=== PATIENT | female | born 1950 | race Caucasian/White ===

== ENCOUNTER 2017-03-05 00:11 | Inpatient (IN) | payer OTHER, MEDICAID ==
[~2017-03-05] VITALS: Ht 154.9 cm; Wt 68.0 kg
[2017-03-05 00:44] LABS: BASOPHILS # (AUTO) 0.1 K/uL (0.0-8.0); BASOPHILS % (AUTO) 0.7 % (0.0-2.0); EOSINOPHILS # (AUTO) 0.1 K/uL (0.0-0.7); EOSINOPHILS % (AUTO) 1.4 % (0.0-7.0); HEMATOCRIT 35.5 % (37-47); LYMPHOCYTES # (AUTO) 1.8 K/uL (20.0-40.0); LYMPHOCYTES % (AUTO) 24.5 % (20.5-51.5); MEAN CORPUSCULAR HEMOGLOBIN 30.5 UUG (27.0-31.0); MEAN CORPUSCULAR HGB CONC 34 g/dL (32.0-37.0); MEAN CORPUSCULAR VOLUME 90.3 FL (81.0-99.0); MONOCYTES # (AUTO) 0.6 K/uL (2.0-10.0); MONOCYTES % (AUTO) 8.2 % (0.0-11.0); NEUTROPHILS # (AUTO) 4.7 K/uL (1.8-8.9); NEUTROPHILS % (AUTO) 65.2 % (38.5-71.5); PLATELET COUNT (AUTO) 220 K/UL (150-450); RED BLOOD CELL COUNT(AUTO) 3.93 MIL/UL (4.2-5.4); RED CELL DISTRIBUTION WIDTH 14.5 % (11.5-14.5); WHITE BLOOD COUNT (AUTO) 7.3 K/UL (4.0-11.2)
--- NOTE | 2017-03-05 00:44 | NUR ---
labs drawn/urine sent, ekg done, pt to ct scan.
[2017-03-05 00:54] LABS: ETHANOL < 3 MG/DL (0-0)
[2017-03-05 00:54] LABS: *AMPHETAMINE, URINE NEGATIVE (NEGATIVE); *BARBITURATE, URINE NEGATIVE (NEGATIVE); *CANNABINOID, URINE NEGATIVE (NEGATIVE); *COCCAINE, URINE NEGATIVE (NEGATIVE); *OPIATE, URINE NEGATIVE (NEGATIVE); *PHENCYCLIDINE SCREEN,URINE NEGATIVE (NEGATIVE)
[2017-03-05 00:56] LABS: ALANINE AMINOTRANSFERASE 34 U/L (14-59); ALBUMIN 4.4 g/dL (3.4-5.0); ALKALINE PHOSPHATASE 141 U/L (50-136); ASPARTATE AMINOTRANSFERASE 63 U/L (15-37); BILIRUBIN,DIRECT 0.1 mg/dL (0.0-0.2); BILIRUBIN,TOTAL 0.6 mg/dL (0.2-1.0); CALCIUM 9.4 mg/dL (8.5-10.1); CARBON DIOXIDE 29 mmol/L (21-32); CHLORIDE 104 mmol/L (98-107); GFR 28 mL/min (>60); GLUCOSE 96 mg/dL (74-106); POTASSIUM 4.2 mmol/L (3.5-5.1); SODIUM SERUM 142 mmol/L (136-145); TOTAL PROTEIN, SERUM 8.3 g/dL (6.4-8.2); UREA NITROGEN, BLOOD 19 mg/dL (7-18)
[2017-03-05 00:57] LABS: ACETAMINOPHEN < 2.0 ug/mL (10-30); CREATININE 1.8 mg/dL (0.6-1.3)
[2017-03-05 01:03] LABS: THYROID STIMULATING HORMONE 0.686 mIU/mL (0.358-3.740)
--- NOTE | 2017-03-05 01:19 | NUR ---
felecia hubbard the pet student counselor at the bedside.
--- NOTE | 2017-03-05 02:05 | NUR ---
admit order written, belongings list done. sbar report to mhu. pt via w/c to rm 141a
[2017-03-05] MEDS ORDERED: TEMAZEPAM 7.5 MG CAPSULE PO PRN (03:30)
[2017-03-05] MEDS ORDERED: ACETAMINOPHEN 325 MG TABLET PO PRN (03:30)
[2017-03-05] MEDS ORDERED: MAG HYDROX/AL HYDROX/SIMETH 30 ML LIQUID UDC PO PRN (03:30)
[2017-03-05 04:30] VITALS: BP 136/104
--- NOTE | 2017-03-05 05:17 | NUR ---
Admitting Note: Patient is a 66 yr old female admitted to Mental Health Unit on a 5150 for Danger to self and Grave Disability. According to the hold neighbors called 911 because they were concerned the patient was walking the hallways of the apartment building where she currently resides talking to herself. It was reported that the patient had no light bulbs in her apartment and no food. Patient unable to provide medical history other than hypertension patient presented to the unit with a blood pressure of 136/104, to follow up with physician. Patient admitted under the care of Dr. Huggins and Dr. Torres. On admission patient appeared disheveled and unkempt. Skin appeard to be intact with the exception of a scab located on right leg chin area. Patient alert however disoriented to time, place and situation, patient's responsed to the question, What year is it? The answer given was "2014" . Patient appeared anxious and unable to form a coherent thought. Patient's speech was garbled and the content of her speech tangental and nonsensical. All belongings logged, Patient oriented to the room. Addendum: 03/05/17 at 0532 by KEVIN JOHNSON RN (scab located on and left leg)
[2017-03-05] MEDS: LORAZEPAM 0.5 MG TABLET PO PRN ×2 (07:27→16:09)
[2017-03-05 07:30] VITALS: BP 149/101
[2017-03-05] MEDS: GABAPENTIN 100 MG CAPSULE PO SCH ×2 (12:15→16:09)
[2017-03-05] MEDS: SERTRALINE HCL 50 MG TABLET PO SCH (12:16)
[2017-03-05 15:40] VITALS: BP 156/90
[2017-03-05 20:00] VITALS: BP 145/84
[2017-03-05] MEDS ORDERED: QUETIAPINE FUMARATE 25 MG TABLET PO SCH (21:00)
[2017-03-06] MEDS: LORAZEPAM 0.5 MG TABLET PO PRN ×2 (00:07→08:25)
[2017-03-06 07:30] VITALS: BP 129/52
[2017-03-06 08:13] LABS: BASOPHILS % (AUTO) 0.9 % (0.0-2.0); EOSINOPHILS # (AUTO) 0.2 K/uL (0.0-0.7); EOSINOPHILS % (AUTO) 3.8 % (0.0-7.0); HEMATOCRIT 36.8 % (37-47); HEMOGLOBIN 12.4 G/DL (12.0-16.0); LYMPHOCYTES # (AUTO) 1.1 K/uL (20.0-40.0); LYMPHOCYTES % (AUTO) 26.8 % (20.5-51.5); MEAN CORPUSCULAR HEMOGLOBIN 30.3 UUG (27.0-31.0); MEAN CORPUSCULAR HGB CONC 34 g/dL (32.0-37.0); MEAN CORPUSCULAR VOLUME 89.8 FL (81.0-99.0); MONOCYTES # (AUTO) 0.3 K/uL (2.0-10.0); MONOCYTES % (AUTO) 7.5 % (0.0-11.0); NEUTROPHILS # (AUTO) 2.5 K/uL (1.8-8.9); PLATELET COUNT (AUTO) 198 K/UL (150-450); RED CELL DISTRIBUTION WIDTH 14.9 % (11.5-14.5)
[2017-03-06 08:25] LABS: WHITE BLOOD COUNT (AUTO) 4.1 K/UL (4.0-11.2)
[2017-03-06] MEDS: GABAPENTIN 100 MG CAPSULE PO SCH ×2 (08:25→16:32)
[2017-03-06 08:39] LABS: CREATININE 1.3 mg/dL (0.6-1.3); POTASSIUM 4.8 mmol/L (3.5-5.1)
[2017-03-06 08:40] LABS: ALBUMIN 3.9 g/dL (3.4-5.0); BILIRUBIN,TOTAL 0.5 mg/dL (0.2-1.0); MAGNESIUM 2.4 mg/dL (1.8-2.4); PHOSPHOROUS 5.2 mg/dL (2.5-4.9); TOTAL PROTEIN, SERUM 7.9 g/dL (6.4-8.2)
[2017-03-06] MEDS: SERTRALINE HCL 50 MG TABLET PO SCH (13:16)
--- NOTE | 2017-03-06 13:34 | NUR ---
UR Note: Faxed clinicals to [facility], KATIANA Thakkar [ ext [phone] ]. Awaiting authorization.
[2017-03-06 15:29] VITALS: BP 126/78
[2017-03-06 20:00] VITALS: BP 134/78
[2017-03-06] MEDS: QUETIAPINE FUMARATE 25 MG TABLET PO SCH (20:04)
--- NOTE | 2017-03-06 22:00 | NUR ---
received to care, lying in bed, pleasant upon approach. remains isolative, in her room. was initially anxious, and hyperverbal. was observed in bed with her room mate, hugging her. firm limits set on this behavior, and it was not repeated. compliant with medications, and staff direction. as of 2199, she appears to be asleep. no distress noted. will continue to monitor closely.
--- NOTE | 2017-03-07 06:00 | NUR ---
slept 8.0 hours, total. is now awake. assisted with AM care, and shower. no distress noted. will continue to monitor closely.
[2017-03-07 07:30] VITALS: BP 134/86
[2017-03-07] MEDS: QUETIAPINE FUMARATE 25 MG TABLET PO SCH ×2 (08:58→20:15)
[2017-03-07] MEDS: GABAPENTIN 100 MG CAPSULE PO SCH ×2 (08:58→17:57)
[2017-03-07 11:09] LABS: VIT D, 25-HYDROXY 20.1 ng/mL (30.0-100.0)
[2017-03-07] MEDS: SERTRALINE HCL 50 MG TABLET PO SCH (12:32)
[2017-03-07 14:11] LABS: PTH, INTACT 81 pg/mL (15-65)
[2017-03-07 15:10] VITALS: BP 141/97
--- NOTE | 2017-03-07 16:22 | NUR ---
UR Note: Faxed clinicals today to [facility], KATIANA Thakkar [ ext [phone] ]. Awaiting authorization #.
[2017-03-07 20:32] VITALS: BP 154/118
--- NOTE | 2017-03-07 22:00 | NUR ---
received to care, in the activity room, visiting with her visitor. pleasant upon approach. compliant with medications and staff direction. interacts well with select peers. as of 2200, she appears to be asleep. no distress noted. will continue to monitor closely.
--- NOTE | 2017-03-08 06:00 | NUR ---
slept 9.5 hours, total. remains asleep, but easy to awaken. no distress noted. will continue to monitor closely.
[2017-03-08 07:30] VITALS: BP 155/103
[2017-03-08 08:11] LABS: A/G RATIO 1.1 (0.7-1.7); ALBUMIN 3.9 g/dL (2.9-4.4); ALPHA-1-GLOBULIN 0.3 g/dL (0.0-0.4); ALPHA-2-GLOBULIN 0.8 g/dL (0.4-1.0); BETA GLOBULIN 0.8 g/dL (0.7-1.3); GAMMA GLOBULIN 1.6 g/dL (0.4-1.8); GLOBULIN, TOTAL 3.5 g/dL (2.2-3.9); M-SPIKE Not Observed g/dL (Not Observed)
[2017-03-08] MEDS: QUETIAPINE FUMARATE 25 MG TABLET PO SCH (08:45)
[2017-03-08] MEDS: AMLODIPINE 5 MG TABLET PO SCH (08:45)
[2017-03-08] MEDS: GABAPENTIN 100 MG CAPSULE PO SCH ×2 (08:45→17:53)
--- NOTE | 2017-03-08 08:59 | NUR ---
Initial discharge instructions: The patient resides at her apartment [[address] [place] [address]; ] independetly. The patient stated that she would like to return home upon discharge and has refused placement at an indepedent living/assisted living facility. TIMMY spoke with the patient's long time friend, Prince Gasca who stated that she will be able to picker feeder the patient and take her home upon discharge. TIMMY will speak with the patient, friend, and MD regarding most appropriate discharge plan. SS will form a safe and proper discharge.
[2017-03-08 11:07] LABS: CALCITRIOL VIT D,1,25 DIHYDROX 76.2 pg/mL (19.9-79.3)
[2017-03-08 11:39] VITALS: BP 142/110
--- NOTE | 2017-03-08 12:25 | NUR ---
UR Note: Faxed clinicals today to [facility], KATIANA Thakkar [ ext [phone] ]. Awaiting authorization #.
[2017-03-08] MEDS: SERTRALINE HCL 50 MG TABLET PO SCH (13:32)
[2017-03-08 16:00] VITALS: BP 160/108
--- NOTE | 2017-03-08 16:00 | NUR ---
GPS/RN- Dr Kiser notified of patients blood pressure continues hypertensive. orders received for Clonidine 0.1mg PO as needed every 8 hours for SBP greater than 160
[2017-03-08] MEDS ORDERED: CLONIDINE HCL 0.1 MG TABLET PO PRN (16:15)
--- NOTE | 2017-03-08 16:18 | NUR ---
Locker Room Supervisor An APS report was submitted today at 4:16 PM for self neglect. APS Intake ID [id number]
[2017-03-08 19:44] VITALS: BP 142/97
[2017-03-08] MEDS: QUETIAPINE FUMARATE 100 MG TABLET PO SCH (20:04)
[2017-03-08] MEDS ORDERED: QUETIAPINE FUMARATE 25 MG TABLET PO SCH (21:00)
--- NOTE | 2017-03-08 22:00 | NUR ---
received to care, in the activity room, watching tv, interacting with peers, pleasant upon approach. compliant with medications and staff direction. interacts well with select peers. as of 2200, she appears to be asleep. no distress noted. will continue to monitor closely.
--- NOTE | 2017-03-09 06:00 | NUR ---
slept 9 hours
[2017-03-09 07:30] VITALS: BP 132/87
--- NOTE | 2017-03-09 09:34 | NUR ---
UR Note: Faxed clinicals today to [facility], KATIANA Thakkar [ ext [phone] ]. Awaiting authorization #.
[2017-03-09] MEDS: GABAPENTIN 100 MG CAPSULE PO SCH ×2 (09:45→17:08)
[2017-03-09] MEDS: AMLODIPINE 5 MG TABLET PO SCH (09:46)
--- NOTE | 2017-03-09 10:36 | NUR ---
Mattress And Foundation Sewer TIMMY spoke with the patient's good friend Prince Gasca yesterday (03/08/17) to inquire about patient's current living condition and if he will be able to help the patient clean up her condo for when she returns home. Prince stated that he had already gone to the patient's home (she gave him her keys) and has done a lot of cleaning. He stated that there was no feces in the house (despite reports). He stated that he has cleaned around the house and has done laundry for the patient. He requested for the patient to be discharged on Monday (03/10/17) so that he could have as much time as possible to get the house ready for the patient before she returns home. The patient is scheduled to be discharged tomorrow. Prince will pick her up at 1:00 pm and take her back home. Addendum: 03/10/17 at 0827 by MARLIN WARNER Spoke with Prince today and he stated that he has cleaned and prepared the patient's home for her to return today. He also stated after the patient settles at home today, he will take her to the grocery store to buy groceries.
[2017-03-09] MEDS: SERTRALINE HCL 50 MG TABLET PO SCH (13:31)
[2017-03-09 15:09] VITALS: BP 144/85
--- NOTE | 2017-03-09 17:50 | NUR ---
patient visible in day room most of shift in and out of room with limited selfdisclousure, continue to m,onitor to monitor for safety.
[2017-03-09] MEDS: QUETIAPINE FUMARATE 100 MG TABLET PO SCH (20:11)
--- NOTE | 2017-03-10 06:46 | NUR ---
GPS: REMAIN CALM AND COOPERATIVE.COMPLIANT WITH MEDS AND CARE. SLEPT 7 HRS THROUGH THE NIGHT.CONTINUE PLAN OF CARE.
[2017-03-10 07:30] VITALS: BP 145/97
--- NOTE | 2017-03-10 08:27 | NUR ---
DC Note: The patient will be discharged today back to her apartment [[address] [place] [address]; ] via private transportation at 1:00 pm. The patient's friend Prince Gasca will pick her up and take her home today. Spoke with the patient and she is aware and agreeable with this plan. The patient will follow-up with her radio communication coordinator Dr. Love [[address], [place] [address] ]. Spoke with KATIANA Peacock with [facility] who has set-up an outpatient follow-up appointment with psychiatrist Dr. Garcia on 03/23/17 at 2:30 pm [[address] [place] [address]; ]. An order for home health was faxed to KATIANA Fleming at [facility] . Per Lonnie, the insurance company will provide the patient with home health.
[2017-03-10] MEDS: AMLODIPINE 5 MG TABLET PO SCH (09:47)
[2017-03-10] MEDS: GABAPENTIN 100 MG CAPSULE PO SCH (09:47)
--- NOTE | 2017-03-10 12:37 | NUR ---
Patient being discharged back home today to her apartment [address], [place] [address]. Patient friend Prince Gasca is assuming responsibility of patients well being. Patient instructed to follow up with Dr. Love her primary and Dr. Garcia her psychiatrist. Address given. Patient given prescriptions as well.
[2017-03-10] MEDS: SERTRALINE HCL 50 MG TABLET PO SCH (12:54)
[2017-03-10 15:26] VITALS: BP 151/104
== END 2017-03-10 13:30 | disposition home or self-care (01) | DRG 885 ==
LOC: ER 00:13 → GPS 02:05
PROVIDERS: ADMIT Psychiatry & Neurology Psychiatry; ATTEND Internal Medicine
DX: F29 Unspecified psychosis not due to a substance or known physiological condition (principal); N17.9 Acute kidney failure, unspecified; N18.9 Chronic kidney disease, unspecified; F32.3 Major depressive disorder, single episode, severe with psychotic features; I12.9 Hypertensive chronic kidney disease with stage 1 through stage 4 chronic kidney disease, or unspecified chronic kidney disease; Z73.6 Limitation of activities due to disability; F41.9 Anxiety disorder, unspecified; F03.90 Unspecified dementia, unspecified severity, without behavioral disturbance, psychotic disturbance, mood disturbance, and anxiety; E86.9 Volume depletion, unspecified; E78.5 Hyperlipidemia, unspecified; Z98.84 Bariatric surgery status
CPT/HCPCS: 36415; 70450; 80307; 82306; 82652; 83735; 83970; 84100; 84155; 84165; 84443; 85025; 93005; 97001; A4663; G0480-TC; G6040-TC

== ENCOUNTER 2017-10-01 19:18 | Inpatient (IN) | payer MEDICAID, OTHER ==
[~2017-10-01] VITALS: Ht 154.9 cm; Wt 69.9 kg
--- NOTE | 2017-10-01 19:45 | NUR ---
Pt unable to recall names and doses of medications and has no one listed to call to confirm with. Unable to complete med recon at this time
--- NOTE | 2017-10-01 20:08 | NUR ---
Patient BIB [facility]83 c/o anxiety. She was found by a [facility] laying on a sidewalk talking fast. Patient is A/O x3, talking non-stop in bed, states no pain, requesting "something to calm me down." To room 3A, GREGG performed MSE.
[2017-10-01 20:33] LABS: BASOPHILS % (AUTO) 0.3 % (0.0-2.0); EOSINOPHILS % (AUTO) 0.2 % (0.0-7.0); HEMATOCRIT 35.8 % (37-47); HEMOGLOBIN 11.8 G/DL (12.0-16.0); LYMPHOCYTES # (AUTO) 1.1 K/UL (0.8-4.8); LYMPHOCYTES % (AUTO) 10.4 % (20.5-51.5); MEAN CORPUSCULAR HEMOGLOBIN 31.3 UUG (27.0-31.0); MEAN CORPUSCULAR HGB CONC 33 g/dL (32.0-37.0); MEAN CORPUSCULAR VOLUME 94.7 FL (81.0-99.0); MONOCYTES # (AUTO) 0.6 K/UL (0.1-1.30); MONOCYTES % (AUTO) 5.8 % (0.0-11.0); NEUTROPHILS # (AUTO) 9.2 K/UL (1.8-8.9); NEUTROPHILS % (AUTO) 83.3 % (38.5-71.5); PLATELET COUNT (AUTO) 298 K/UL (150-450); RED BLOOD CELL COUNT(AUTO) 3.78 MIL/UL (4.2-5.4); WHITE BLOOD COUNT (AUTO) 10.9 K/UL (4.0-11.2)
[2017-10-01 20:40] LABS: CARBON DIOXIDE 20 mmol/L (21-32); CHLORIDE 102 mmol/L (98-107); CREATININE 2.2 mg/dL (0.6-1.3); GLUCOSE 70 mg/dL (74-106); POTASSIUM 4.4 mmol/L (3.5-5.1); UREA NITROGEN, BLOOD 69 mg/dL (7-18)
[2017-10-01] MEDS ORDERED: ONDANSETRON 4 MG/2 ML VIAL ONE (20:43)
[2017-10-01] MEDS ORDERED: PANTOPRAZOLE SODIUM 40 MG VIAL ONE (20:44)
[2017-10-01 20:51] LABS: ETHANOL < 3 MG/DL (0-0)
[2017-10-01 20:52] LABS: THYROID STIMULATING HORMONE 0.242 mIU/mL (0.358-3.740)
[2017-10-01 20:55] LABS: ALANINE AMINOTRANSFERASE 57 U/L (14-59); ALKALINE PHOSPHATASE 124 U/L (50-136); ASPARTATE AMINOTRANSFERASE 148 U/L (15-37); BAND % (MANUAL) 10 % (0-10); BILIRUBIN,DIRECT 0.2 mg/dL (0.0-0.2); BILIRUBIN,TOTAL 0.7 mg/dL (0.2-1.0); LYMPHOCYTES % (MANUAL) 12 % (20-40); MONOCYTES % (MANUAL) 7 % (2-10); NEUTROPHILS % (MANUAL) 71 % (42-75); TOTAL PROTEIN, SERUM 8.4 g/dL (6.4-8.2)
[2017-10-01 20:57] LABS: ACETAMINOPHEN < 2.0 ug/mL (10-30)
[2017-10-01] MEDS ORDERED: IV NORMAL SALINE 1000 ML BAG IV ONE (21:00)
--- NOTE | 2017-10-01 21:10 | NUR ---
Patient ambulated out of the room with B/P cuff still attached to monitor pulling the equipment out of the room with her. She was redirected, equipment returned to room, to the restroom but was unable to provide urine at this time.
--- NOTE | 2017-10-01 21:12 | NUR ---
Patient to Radiology for CT via wheelchair.
[2017-10-01] MEDS ORDERED: PROPRANOLOL HCL 1 MG/1 ML VIAL IVP ONE (21:15)
[2017-10-01] MEDS ORDERED: methylPREDNISolone SOD SUCC 125 MG/2 ML VIAL IV ONE (21:15)
--- NOTE | 2017-10-01 21:20 | NUR ---
Patient returned from Radiology.
[2017-10-01] MEDS ORDERED: LORAZEPAM 2 MG/1 ML VIAL IV ONE (21:45)
[2017-10-01] MEDS ORDERED: methylPREDNISolone SOD SUCC 125 MG/2 ML VIAL ONE (21:46)
[2017-10-01] MEDS ORDERED: LORAZEPAM 2 MG/1 ML VIAL ONE (21:47)
--- NOTE | 2017-10-01 23:18 | NUR ---
Pt. admitted to TELE, under care of Rigo Mojica Belongs List completed
[2017-10-01 23:35] VITALS: BP 124/76
[2017-10-02] MEDS ORDERED: IV D5/ 0.9% NACL 1,000 ML IV SCH (00:30)
[2017-10-02] MEDS: HALOPERIDOL LACTATE 5 MG/1 ML VIAL IM PRN ×2 (00:43→16:35)
[2017-10-02] MEDS ORDERED: HALOPERIDOL LACTATE 5 MG/1 ML VIAL ONE (00:45)
[2017-10-02 04:00] VITALS: BP 121/64
[2017-10-02 06:45] LABS: BASOPHILS % (AUTO) 0.1 % (0.0-2.0); HEMATOCRIT 30.6 % (31.2-41.9); HEMOGLOBIN 10.1 g/dL (10.9-14.3); LYMPHOCYTES # (AUTO) 0.8 K/uL (20.0-40.0); LYMPHOCYTES % (AUTO) 9.8 % (20.5-51.5); MEAN CORPUSCULAR HGB CONC 33 g/dL (32.3-35.6); MEAN CORPUSCULAR VOLUME 96.6 fL (75.5-95.3); MONOCYTES # (AUTO) 0.2 K/uL (2.0-10.0); MONOCYTES % (AUTO) 2.8 % (0.0-11.0); NEUTROPHILS # (AUTO) 7.4 K/uL (1.8-8.9); NEUTROPHILS % (AUTO) 87.3 % (38.5-71.5); PLATELET COUNT (AUTO) 214 K/uL (179-408); RED BLOOD CELL COUNT(AUTO) 3.17 MIL/uL (3.63-4.92); WHITE BLOOD COUNT (AUTO) 8.5 K/uL (3.8-11.8)
[2017-10-02 07:37] LABS: CREATININE 1.7 mg/dL (0.6-1.3); POTASSIUM 4.4 mmol/L (3.5-5.1)
--- NOTE | 2017-10-02 08:00 | NUR ---
awake alert oriented x 2, reoriented to time, states "I dont know how I got here, i know i went to the dentist last Monday" informed that she was brought in to the ER by paramedics yesterday, hyperverbal and thoughts are disorganized, denies of pain, safety measures maintained, call light within reach
--- NOTE | 2017-10-02 10:00 | NUR ---
seen by Dr Kiser with orders, informed of urine and stool needed and US of kidney is ordered
[2017-10-02 11:32] VITALS: BP 153/84
[2017-10-02] MEDS ORDERED: [UNRECOGNIZED DRUG - REMARK] (11:50)
--- NOTE | 2017-10-02 14:00 | NUR ---
states " i want to go home or to leave against medical advice" called Dr Kiser and order for crisis team- call ed Doc and informed
--- NOTE | 2017-10-02 14:05 | NUR ---
BP 153/84- also informed Dr Kiser- no medication order given- to observe
[2017-10-02] MEDS: ACETAMINOPHEN 325 MG TABLET PO PRN ×2 (15:13→20:47)
[2017-10-02 15:47] VITALS: BP 149/87
--- NOTE | 2017-10-02 16:35 | NUR ---
restless- medicated with Haldol 1 mg IM prn. crisis team was here and placed on 72 hour hold- sitter in the room
[2017-10-02 16:41] LABS: *BILIRUBIN,URIN NEGATIVE (NEGATIVE); *BLOOD, URINE Trace-lysed (NEGATIVE); *CLARITY,URINE CLEAR (CLEAR); *COLOR,URINE YELLOW (YELLOW); *KETONES,URINE 1+ (NEGATIVE); *PROTEIN,URINE NEGATIVE (NEGATIVE); *UROBILINOGEN,URINE 0.2 E.U./dl (NORMAL); LEUKOCYTE ESTERASE ,URINE NEGATIVE (NEGATIVE); NITRITE, URINE NEGATIVE (NEGATIVE); PH,URINE 5.5 (5.0-8.0); UGLUCOSE NEGATIVE (NEGATIVE)
[2017-10-02 16:59] LABS: *CREATININE,URINE < 13.0 mg/dL (30-125); *URINE TOTAL PROTEIN RANDOM 7.3 mg/dL (<150/24HR)
[2017-10-02 17:00] LABS: BACTERIA,URINE NONE SEEN /HPF (NONE SEEN); RBC,URINE 0-3 /HPF (0-3); SQUAMOUS EPITHELIAL CELL,UR NONE SEEN /HPF (NONE SEEN); WBC,URINE 0-3 /HPF (0-3)
--- NOTE | 2017-10-02 18:16 | NUR ---
c/o of anxiety- plced a call to - Dr Pantoja wildlife biostation research ecologist - to call back, sitter in the room, told to do deep breaths and stay in bed with eyes closed, followed instructions and informed that MD was called and waiting for him to return call
[2017-10-02] MEDS: IV D5/ 0.9% NACL 1,000 ML IV PRN (18:23)
--- NOTE | 2017-10-02 18:30 | NUR ---
Dr Pantoja called with order
[2017-10-02] MEDS: LORAZEPAM 2 MG/1 ML VIAL IV PRN ×2 (18:49→22:25)
--- NOTE | 2017-10-02 18:53 | NUR ---
medicated with Ativan 0.5mg iv , sitter at bedside, no distress noted, all needs attended and met
[2017-10-02 20:00] VITALS: BP 134/87
--- NOTE | 2017-10-02 22:25 | NUR ---
nsg: pt anxious. medicated with ativan 0.5mg ivp. sitter at the bedside.
--- NOTE | 2017-10-03 05:42 | NUR ---
nsg: pt comfortable sleeping entire night. no distress noted. all needs attended. sitter at the bedside.
[2017-10-03 06:20] VITALS: BP 122/75
[2017-10-03 06:56] LABS: BASOPHILS % (AUTO) 0.2 % (0.0-2.0); EOSINOPHILS % (AUTO) 0.9 % (0.0-7.0); HEMATOCRIT 30.3 % (31.2-41.9); HEMOGLOBIN 10.2 g/dL (10.9-14.3); LYMPHOCYTES # (AUTO) 0.7 K/uL (20.0-40.0); MEAN CORPUSCULAR HEMOGLOBIN 32.2 uug (24.7-32.8); MEAN CORPUSCULAR HGB CONC 34 g/dL (32.3-35.6); MEAN CORPUSCULAR VOLUME 95.4 fL (75.5-95.3); MONOCYTES # (AUTO) 0.4 K/uL (2.0-10.0); MONOCYTES % (AUTO) 9.1 % (0.0-11.0); NEUTROPHILS # (AUTO) 3.2 K/uL (1.8-8.9); NEUTROPHILS % (AUTO) 73.8 % (38.5-71.5); PLATELET COUNT (AUTO) 184 K/uL (179-408); RED BLOOD CELL COUNT(AUTO) 3.18 MIL/uL (3.63-4.92); WHITE BLOOD COUNT (AUTO) 4.3 K/uL (3.8-11.8)
[2017-10-03 07:59] LABS: BILIRUBIN,TOTAL 0.4 mg/dL (0.2-1.0); CREATININE 1.1 mg/dL (0.6-1.3); MAGNESIUM 2.2 mg/dL (1.8-2.4); PHOSPHOROUS 2.5 mg/dL (2.5-4.9); POTASSIUM 4.4 mmol/L (3.5-5.1)
[2017-10-03] MEDS: IV D5/ 0.9% NACL 1,000 ML IV PRN (08:05)
[2017-10-03 08:20] LABS: TRIIODOTHYRONINE, FREE 2.5 pg/mL (2.0-4.4)
[2017-10-03] MEDS: AMLODIPINE 5 MG TABLET PO SCH (08:55)
[2017-10-03] MEDS: LORAZEPAM 2 MG/1 ML VIAL IV PRN ×3 (09:42→22:50)
--- NOTE | 2017-10-03 10:00 | NUR ---
Received patient awake A and O x 2 with bouts of confusion. D5NS at 75 ml/hr on the left forearm #20 intact and patent. BP 148/101, Dr. White notified, ordered norvasc 5 mg. Patient stated that she felt anxious, Ativan PRN given. All comfort measures provided. PROCUREMENT INTERNSHIP assisted with shower. 1:1 sitter at bedside.
[2017-10-03 11:00] VITALS: BP 138/88
[2017-10-03 15:00] VITALS: BP 147/90
[2017-10-03 20:21] VITALS: BP 156/103
--- NOTE | 2017-10-03 21:00 | NUR ---
RN NOTES RECEIVED PATIENT LYING IN BED, AWAKE A/OX3, VERBALLY RESPONSIVE ABLE TO MAKE NEEDS KNOWN. HAS C/O PAIN AND ANXIETY, WILL CALL MD FOR PAIN MED. A SITTER AT BEDSIDE AT BEDSIDE FOR SAFETY. HAS AN IV ACCESS TO THE L FA WITH IVF INFUSING, IV IS DRY AND INTACT WITH NO S/SX OF INFILTRATION OR PHLEBITIS NOTED. DUE MEDS GIVEN, SEE EMAR. VS ARE TAKEN AND RECORDED, STABLE, SEE FLOWSHEET.PM CARE PROVIDED. FALL PRECAUTIONS MAINTAINED AND SAFETY MEASURES REINFORCED. CALL LIGHT WITHIN REACH. WILL CONTINUE TO MONITOR.
[2017-10-03] MEDS: ACETAMINOPHEN 325 MG TABLET PO PRN (22:49)
[2017-10-04] MEDS ORDERED: HYDROMORPHONE 1 MG/1 ML DISP.SYRIN IM PRN (00:15)
--- NOTE | 2017-10-04 00:58 | NUR ---
RN NOTES 4MG OF IV DILAUDID WAS PULLED OUT FROM THE PYXIS AND WAS WASTED TO YIELD 0.25 MG OF DILAUDID. ONLY 0.25MG VIA IV WAS GIVEN PER NEW MD ORDER OF JODI FOR GENERALIZED PAIN OF 10/10.
[2017-10-04] MEDS ORDERED: HYDROMORPHONE 4 MG/1 ML DISP.SYRIN ONE ×2 (01:05→05:42)
[2017-10-04] MEDS: IV D5/ 0.9% NACL 1,000 ML IV PRN (05:35)
[2017-10-04 06:53] VITALS: BP 141/84
[2017-10-04 07:56] VITALS: BP 130/79
--- NOTE | 2017-10-04 08:00 | NUR ---
awake, calm and cooperative, denies of pain, sitter at bedside
[2017-10-04] MEDS: AMLODIPINE 5 MG TABLET PO SCH (08:36)
[2017-10-04] MEDS ORDERED: LORA2VIA6 IV (09:13)
[2017-10-04] MEDS ORDERED: HALO5VIA9 IM (09:13)
[2017-10-04] MEDS ORDERED: ACET325T53 PO (09:13)
[2017-10-04] MEDS ORDERED: AMLO5TAB2 PO (09:13)
[2017-10-04] MEDS: HYDROMORPHONE 4 MG/1 ML DISP.SYRIN IM PRN ×2 (11:08→15:51)
--- NOTE | 2017-10-04 11:08 | NUR ---
medicated with Dilaudid 0.25mg for c/o right knee and groin
--- NOTE | 2017-10-04 11:40 | NUR ---
relieved of pain, dozing on and off, vs wnl, sitter at bedside
[2017-10-04 12:00] VITALS: BP 128/75
--- NOTE | 2017-10-04 14:00 | NUR ---
compliant with care, able to carry conversation, with flight of ideas at times, no suicidal ieas, hyperverbal
[2017-10-04 15:45] VITALS: BP 135/89
--- NOTE | 2017-10-04 16:00 | NUR ---
informed of d/c to [facility]- wanted to go home but agreed to go to [facility]- called [facility] but not ready for pt- told to be done next shift
--- NOTE | 2017-10-04 18:27 | NUR ---
remains calm and cooperative, appetite fair, up and about in the room, all needs attended and met, sitter in the room
--- NOTE | 2017-10-04 18:50 | NUR ---
report given to Jimmy at [facility], escorted per w/c by sitter in stable condition with all belongings
[2017-10-04] MEDS ORDERED: QUETIAPINE FUMARATE 100 MG TABLET PO SCH (21:00)
[2017-10-05 06:07] LABS: A/G RATIO 1.1 (0.7-1.7); ALBUMIN 3.5 g/dL (2.9-4.4); ALPHA-1-GLOBULIN 0.3 g/dL (0.0-0.4); ALPHA-2-GLOBULIN 0.7 g/dL (0.4-1.0); BETA GLOBULIN 0.9 g/dL (0.7-1.3); GAMMA GLOBULIN 1.4 g/dL (0.4-1.8); GLOBULIN, TOTAL 3.3 g/dL (2.2-3.9); M-SPIKE Not Observed g/dL (Not Observed)
[2017-10-05] MEDS ORDERED: SERTRALINE HCL 50 MG TABLET PO SCH (09:00)
== END 2017-10-04 18:45 | DRG 682 ==
LOC: ER 19:19 → TELE 22:53 → MED 10-02 18:05
PROVIDERS: ADMIT Internal Medicine Nephrology; ATTEND Internal Medicine Nephrology
DX: N17.0 Acute kidney failure with tubular necrosis (principal); G92 Toxic encephalopathy; Z73.6 Limitation of activities due to disability; Z98.84 Bariatric surgery status; I10 Essential (primary) hypertension; E03.9 Hypothyroidism, unspecified; D50.0 Iron deficiency anemia secondary to blood loss (chronic); Z86.59 Personal history of other mental and behavioral disorders
CPT/HCPCS: 36415; 70450; 71010; 76770; 82533; 83550; 83735; 83970; 84100; 84155; 84156; 84165; 84300; 84443; 84479; 84480; 84481; 85025; 93005; A4663; C9113; G0480; G0480-TC; J1170; J1630; J1800; J2060; J2405; J2930; J7030; J7042

== ENCOUNTER 2017-10-04 19:17 | Inpatient (IN) | payer OTHER ==
[2017-10-04 19:00] VITALS: BP 149/111
[~2017-10-04 19:17] MED LIST: ACET325T53 PO; AMLO5TAB2 PO; HALO5VIA9 IM; LORA2VIA6 IV; [UNRECOGNIZED DRUG - REMARK]
[2017-10-04] MEDS ORDERED: TEMAZEPAM 7.5 MG CAPSULE PO PRN (19:30)
[2017-10-04] MEDS ORDERED: ACETAMINOPHEN 325 MG TABLET PO PRN (19:30)
[2017-10-04] MEDS ORDERED: MAG HYDROX/AL HYDROX/SIMETH 30 ML LIQUID UDC PO PRN (19:30)
[2017-10-04] MEDS ORDERED: LORAZEPAM 0.5 MG TABLET PO PRN (19:30)
[2017-10-04] MEDS ORDERED: MAGNESIUM HYDROXIDE 30 ML LIQUID UDC PO PRN (19:30)
[2017-10-04] MEDS ORDERED: QUETIAPINE FUMARATE 100 MG TABLET PO SCH (21:00)
--- NOTE | 2017-10-04 23:00 | NUR ---
received to care, from the [facility] floor, on a 72 hour hold, for being gravely disabled. according to the hold, she was found on the street, talking to herself. she was admitted to the hospital on 10/01, for renal failure. pt did not remember how she got to the hospital, or why. upon arrival on the unit, she was pleasant and cooperative. stated that she went to the drug store to fill her psychotropic medications, when she fell. she admits that she was confused at the time, but appears to be alert and coherent, now. she was seen by Dr Garcia, and started on seroquel, at bedtime. as of 2299, she appears to be asleep. no distress noted. will continue to monitor closely.
--- NOTE | 2017-10-05 06:00 | NUR ---
slept 7.5 hours. continues to sleep. no distress noted.
[2017-10-05 07:30] VITALS: BP 149/98
[2017-10-05] MEDS ORDERED: AMLODIPINE 5 MG TABLET PO SCH (09:00)
[2017-10-05] MEDS ORDERED: INFLUENZA VACCINE 2017-2018 0.5 ML DISP.SYRIN IM ONE (09:00)
[2017-10-05] MEDS ORDERED: SERTRALINE HCL 50 MG TABLET PO SCH (09:00)
--- NOTE | 2017-10-05 10:22 | NUR ---
UR Note: Spoke with Ariane at [facility] [phone]). Faxed facesheet for authorization and DC planning purposes ([phone]). Informed Bacteriologist Soil is Kaitlynn ([phone]). SW will follow up.
[2017-10-05] MEDS ORDERED: PNEUMOCOCCAL 23-VAL P-SAC VAC 0.5 ML VIAL IM ONE (12:00)
--- NOTE | 2017-10-05 14:40 | NUR ---
DC Note: Patient will be discharged home [[address] [place] [address]; ] via private transportation at 3pm. Spoke with patients Anmol tello ([phone]) who is willing to provide transportation and is agreeable with discharge plans. Patient is aware and agreeable with discharge plans. Pt will follow-up with her Primary Care Physician Dr. Seth Love [[address] [place] [address]; ]. Spoke with Kaitlynn at [facility] ([phone]), and she provided pt with outpatient psych referral for Dr. Garcia to make an outpatient psych appointment [[address], [address] [place] [address]; [phone]].
[2017-10-05 15:20] VITALS: BP 113/50
--- NOTE | 2017-10-05 15:41 | NUR ---
1535: DISCHARGED PT TO HOME VIA WHEELCHAIR. ACCOMPANIED BY HER UNCLE MEREDITH. DISCHARGE INSTRUCTIONS AND BELONGINGS GIVEN TO PATIENT. PT VERBALIZED UNDERSTANDING. VS: 152/98, 100, 98.6,98%. PT IN NO ACUTE DISTRESS. DENIES HEADACHE OR DIZZINESS. DENIES HOMICIDAL AND SUICIDAL IDEATIONS.
== END 2017-10-05 15:30 | disposition home or self-care (01) | DRG 881 ==
LOC: GPS 19:17
PROVIDERS: ADMIT Psychiatry & Neurology Psychiatry; ATTEND Psychiatry & Neurology Psychiatry
DX: F32.9 Major depressive disorder, single episode, unspecified (principal); N17.0 Acute kidney failure with tubular necrosis; G92 Toxic encephalopathy; I10 Essential (primary) hypertension; Z98.84 Bariatric surgery status; D50.0 Iron deficiency anemia secondary to blood loss (chronic)
CPT/HCPCS: 36415; 90686; 90732

== ENCOUNTER 2017-10-11 13:50 | Inpatient (IN) | payer OTHER ==
[~2017-10-11] VITALS: Ht 165.1 cm; Wt 68.0 kg
[~2017-10-11 13:50] MED LIST changes: -[UNRECOGNIZED DRUG - REMARK]
--- NOTE | 2017-10-11 13:57 | NUR ---
Unable to reconcile pt's home medications at this time, pt unable to recall her home meds, no info available.
--- NOTE | 2017-10-11 14:12 | NUR ---
Pt is alert and oriented x 4. breathing unlabored and even. denies any acute disterss. noted generalized involuntary musculoskeletal twiching. denies sob. denies cp. will continue to monitor.
[2017-10-11] MEDS ORDERED: LORAZEPAM 2 MG/1 ML VIAL IV ONE (14:15)
[2017-10-11 14:39] LABS: BASOPHILS # (AUTO) 0.1 K/uL (0.0-8.0); BASOPHILS % (AUTO) 0.9 % (0.0-2.0); EOSINOPHILS # (AUTO) 0.1 K/uL (0.0-0.7); EOSINOPHILS % (AUTO) 0.9 % (0.0-7.0); HEMATOCRIT 37.3 % (31.2-41.9); HEMOGLOBIN 12.5 g/dL (10.9-14.3); LYMPHOCYTES # (AUTO) 1.6 K/uL (20.0-40.0); LYMPHOCYTES % (AUTO) 20.5 % (20.5-51.5); MEAN CORPUSCULAR HEMOGLOBIN 31.9 uug (24.7-32.8); MEAN CORPUSCULAR HGB CONC 34 g/dL (32.3-35.6); MEAN CORPUSCULAR VOLUME 95.4 fL (75.5-95.3); MONOCYTES # (AUTO) 0.7 K/uL (2.0-10.0); MONOCYTES % (AUTO) 9.1 % (0.0-11.0); NEUTROPHILS # (AUTO) 5.3 K/uL (1.8-8.9); NEUTROPHILS % (AUTO) 68.6 % (38.5-71.5); PLATELET COUNT (AUTO) 443 K/uL (179-408); RED BLOOD CELL COUNT(AUTO) 3.91 MIL/uL (3.63-4.92); WHITE BLOOD COUNT (AUTO) 7.7 K/uL (3.8-11.8)
[2017-10-11 14:49] LABS: CREATININE 1.7 mg/dL (0.6-1.3); POTASSIUM 3.9 mmol/L (3.5-5.1)
[2017-10-11] MEDS ORDERED: LORAZEPAM 2 MG/1 ML VIAL ONE (14:55)
[2017-10-11 15:06] LABS: BILIRUBIN,DIRECT 0.2 mg/dL (0.0-0.2); BILIRUBIN,TOTAL 0.6 mg/dL (0.2-1.0); TOTAL PROTEIN, SERUM 7.7 g/dL (6.4-8.2)
--- NOTE | 2017-10-11 15:08 | NUR ---
Pt medicated as ordered. NSR on monitoring manager. saturating over 96% in RA. vitals are stable. will continue to monito while pending diagnostic test results.
[2017-10-11 15:10] LABS: *BLOOD, URINE NEGATIVE (NEGATIVE); *COLOR,URINE YELLOW (YELLOW); *KETONES,URINE 1+ (NEGATIVE); *PROTEIN,URINE TRACE (NEGATIVE); LEUKOCYTE ESTERASE ,URINE 1+ (NEGATIVE); NITRITE, URINE NEGATIVE (NEGATIVE); UGLUCOSE NEGATIVE (NEGATIVE)
[2017-10-11 15:20] LABS: *BILIRUBIN,URIN NEGATIVE (NEGATIVE); *CLARITY,URINE SLIGHTLY HAZY (CLEAR)
[2017-10-11 15:21] LABS: BACTERIA,URINE FEW /HPF (NONE SEEN); MUCUS,URINE FEW /LPF (0-FEW); RBC,URINE 0-3 /HPF (0-3); SQUAMOUS EPITHELIAL CELL,UR MODERATE /HPF (NONE SEEN)
[2017-10-11 15:25] VITALS: BP 118/66
[2017-10-11] MEDS ORDERED: CEFTRIAXONE 1 G in IV DEXTROSE 5% 50 ML IV ONE (15:30)
--- NOTE | 2017-10-11 15:49 | NUR ---
SW consult requested by Dr. Workman. SW met with patient. Patient is a 67 year old female, who was in her assigned ED bed when SW entered the room. Upon entry, SW observed patient looking at the side wall and talking, however patient was alone in her ED room. Patient was appropriately responsive to SW when SW greeted her, and receptive to meeting with SW. SW gathered some basic psychosocial information. Patient lives alone in an apartment in [place] ([address] [place] [address]. [address], [facility], [address]; telephone # [phone]). Patient reports that she was brought to the ED today by paramedics. She stated that for the last couple of days, she was having trouble breathing and felt weak. Patient also reported that due to not feeling well, she had not eaten in 2 days. Patient reported that she is able to tend to her ADL's/IADL's independently, and also drives. Patient presented with a tremor of head and arms, and when SW inquired about the tremors, patient stated "I wasn't even aware that I was shaking". Patient's speech was at times unclear and difficult to understand, and SW had to ask patient to repeat her responses at times. However patient is oriented and able to provide the necessary information. Patient also reported additional medical problems, which include high blood pressure and Anxiety (patient reported taking Ativan and Xanax). Per patient's report, no hx of psychiatric hospitalization. Patient's mood was appropriate. Grooming appeared slightly unkept. SW inquired about family/friends, and patient reported that she has an uncle and cousins who live in the area, but no immediate family members. Patient has 2 sisters who live in [place]. Patient has never been , and does not have any children. Patient stated she has one friend who lives in [place], and her name is Charmaine, but she could not provide Charmaine's phone number. SW consulted with Dr. Workman, who stated that his plan of care is to admit patient to the medical floor. Based on information gathered and observed, SW to make an APS report. Dr. Workman informed.
[2017-10-11] MEDS ORDERED: CEFTRIAXONE 1 G VIAL ONE (15:50)
--- NOTE | 2017-10-11 16:32 | NUR ---
pt is alert and oriented x 4. breathing unlabored and even. Endorsed care to MIRELA Meneses. will transfer to room 211 per S protocol.
--- NOTE | 2017-10-11 16:40 | NUR ---
APS report made by this SW for suspicion of self-neglect. APS report confirmation intake ID is [id number].
[2017-10-11] MEDS ORDERED: OLANZAPINE 10 MG VIAL IM ONE (17:00)
--- NOTE | 2017-10-11 17:20 | NUR ---
Received client via gurney from ER. Client is confused, admitting diagnosis is UTI. V/S stable: BP 118/66 HR 96 O2 96% at room air RR20. New IV was started on the right forearm 22g, pervious one was removed on the way to the med-surg floor
--- NOTE | 2017-10-11 17:28 | NUR ---
Unable to reconcile pt's home meds in ER due to lack of information, endorsed to 2nd floor accordingly.
--- NOTE | 2017-10-11 18:52 | NUR ---
Client is stable and confused. Client is in bed awake and oriented to name, she believes she was in a mental hospital and thought today was Oct 21. No s/s of pain, SOB, distress or discomfort. Was noted to walk out the room
--- NOTE | 2017-10-11 19:40 | NUR ---
PT RECEIVED IN BED, AWAKE. PT SHOWS INVOLUNTARY BODY JERKING. PT AGITATED AND ANXIOUS ON APPROACH. A/OX2. ABLE TO MAKE NEEDS KNOWN. V/S STABLE. IN NO ACUTE DISTRESS. NO C/O PAIN AT THIS TIME. IV INTACT AND PATENT. ON RA, TOLERATING WELL. AFEBRILE. PT REQUEST GETTING XANAX FOR ANXIETY AND SLEEP, MD AWARE. WILL ADMIN ORDERED. SAFETY MEASURES IMPLEMENTED. CALL LIGHT WITHIN REACH.
[2017-10-11 20:00] VITALS: BP 112/65
[2017-10-11] MEDS ORDERED: ONDANSETRON 4 MG/2 ML VIAL IV PRN (21:00)
[2017-10-11] MEDS ORDERED: ALPRAZOLAM 0.5 MG TABLET PO SCH (22:30)
[2017-10-11] MEDS ORDERED: ALPRAZOLAM 0.5 MG TABLET ONE (22:44)
--- NOTE | 2017-10-12 05:45 | NUR ---
END OF SHIFT NOTES. PT SLEPT WELL THROUGHOUT SHIFT. ADMINISTERED XANAX ORDERED. PT SEEN WITH LESS JERKY MOVEMENTS. PT INSOMNIA CORRECTED. IV INTACT AND PATENT. ALL NEEDS ATTENDED. SAFETY MAINTAINED. CALL LIGHT WITHIN REACH.
[2017-10-12 06:14] VITALS: BP 101/59
[2017-10-12] MEDS ORDERED: ACET-2154 PO (08:51)
[2017-10-12] MEDS ORDERED: AMLO5TAB4 PO (08:53)
[2017-10-12] MEDS ORDERED: HALO1TAB5 IM (08:55)
[2017-10-12 08:56] LABS: BASOPHILS % (AUTO) 0.8 % (0.0-2.0); EOSINOPHILS # (AUTO) 0.1 K/uL (0.0-0.7); EOSINOPHILS % (AUTO) 2.7 % (0.0-7.0); HEMATOCRIT 36.1 % (31.2-41.9); HEMOGLOBIN 11.9 g/dL (10.9-14.3); LYMPHOCYTES # (AUTO) 1.6 K/uL (20.0-40.0); LYMPHOCYTES % (AUTO) 31.8 % (20.5-51.5); MEAN CORPUSCULAR HEMOGLOBIN 31.5 uug (24.7-32.8); MEAN CORPUSCULAR HGB CONC 33 g/dL (32.3-35.6); MEAN CORPUSCULAR VOLUME 95.6 fL (75.5-95.3); MONOCYTES # (AUTO) 0.6 K/uL (2.0-10.0); MONOCYTES % (AUTO) 11.5 % (0.0-11.0); NEUTROPHILS # (AUTO) 2.6 K/uL (1.8-8.9); NEUTROPHILS % (AUTO) 53.2 % (38.5-71.5); PLATELET COUNT (AUTO) 361 K/uL (179-408); RED BLOOD CELL COUNT(AUTO) 3.78 MIL/uL (3.63-4.92); WHITE BLOOD COUNT (AUTO) 4.9 K/uL (3.8-11.8)
[2017-10-12] MEDS ORDERED: LORA2DIS4 IV (08:56)
[2017-10-12 09:03] LABS: CREATININE 1.5 mg/dL (0.6-1.3); MAGNESIUM 2.2 mg/dL (1.8-2.4); PHOSPHOROUS 3.7 mg/dL (2.5-4.9); POTASSIUM 4.1 mmol/L (3.5-5.1)
[2017-10-12 11:59] VITALS: BP 103/77
[2017-10-12] MEDS ORDERED: LORAZEPAM 2 MG/1 ML VIAL IV PRN (14:45)
[2017-10-12] MEDS ORDERED: ACETAMINOPHEN 325 MG TABLET PO PRN (14:45)
[2017-10-12] MEDS ORDERED: HALOPERIDOL LACTATE 5 MG/1 ML VIAL IM PRN (14:45)
[2017-10-12] MEDS ORDERED: HALO5VIA9 IM (14:45)
--- NOTE | 2017-10-12 14:51 | NUR ---
TIMMY received a called from Sarita at [facility], intake SW, who was checking on patient's location. TIMMY confirmed that patient is still in the hospital. Sarita stated that she will update the SW that is assigned the case.
[2017-10-12] MEDS: AMLODIPINE 5 MG TABLET PO SCH (15:10)
[2017-10-12 15:43] VITALS: BP 115/74
[2017-10-12] MEDS: CEFTRIAXONE 1 G in IV DEXTROSE 5% 50 ML IV SCH (17:03)
[2017-10-12 19:53] VITALS: BP 142/88
[2017-10-12 21:05] VITALS: BP 142/88
[2017-10-13 04:00] VITALS: BP 132/85
[2017-10-13 04:33] VITALS: BP 132/85
--- NOTE | 2017-10-13 06:39 | NUR ---
END OF SHIFT SUMMERY: Pt is resting in bed, no acute distress noted. denies pain. no episodes of N/V throughout shift. fall precautions are implemented. all needs attended. Will cont to monitor and endorse pt to the next nurse.
[2017-10-13] MEDS: AMLODIPINE 5 MG TABLET PO SCH (08:00)
[2017-10-13 08:37] VITALS: BP 145/93
[2017-10-13] MEDS: ACETAMINOPHEN 325 MG TABLET PO PRN ×2 (08:37→16:20)
[2017-10-13 11:23] VITALS: BP 127/87
[2017-10-13 15:04] VITALS: BP 139/90
[2017-10-13] MEDS: CEFTRIAXONE 1 G in IV DEXTROSE 5% 50 ML IV SCH (16:20)
[2017-10-13] MEDS: TRAMADOL HCL 50 MG TABLET PO PRN (16:44)
--- NOTE | 2017-10-13 19:30 | NUR ---
PT IN ROOM ALERT AWAKE IN NO ACUTE DISTRESS. NO REACTION TO CURRENT ROCEPHIN ABX IV THERAPY. STATES SHE STILL HAS PAIN TO RIGHT KNEE. ABLE TO FOLLOW SIMPLE COMMANDS. CALL LIGHT PLACED WITHIN REACH AND BED LOCKED. CONTINUE TO MONITOR.
[2017-10-13 20:22] VITALS: BP 142/89
[2017-10-13] MEDS: ALPRAZOLAM 0.5 MG TABLET PO PRN (20:30)
--- NOTE | 2017-10-13 21:17 | NUR ---
PT NOTED WITH MINIMAL BRUISE TO RIGHT UPPER ANTERIOR ARM. STATED FROM A PREVIOUS FALL. ABLE TO MOVE EXTREMITY WITHOUT DIFFICULTY. CONTINUE TO MONITOR.
--- NOTE | 2017-10-14 01:00 | NUR ---
Pt in room asleep. No acute distress or complain of pain at this time. Continue to monitor.
[2017-10-14 04:00] VITALS: BP 124/77
--- NOTE | 2017-10-14 06:00 | NUR ---
Pt in room asleep at this time. Denies any dysuria or lower abdominal discomfort. No acute distress noted. Continue to monitor. Call light placed within reach.
[2017-10-14] MEDS: AMLODIPINE 5 MG TABLET PO SCH (08:43)
[2017-10-14 11:34] VITALS: BP 143/92
[2017-10-14] MEDS ORDERED: ALPR0.5T PO (12:10)
[2017-10-14] MEDS: TRAMADOL HCL 50 MG TABLET PO PRN ×2 (12:35→20:09)
[2017-10-14 15:57] VITALS: BP 160/93
--- NOTE | 2017-10-14 16:23 | NUR ---
PT VERBALIZES ANXIETY /, PT WAS TAUGHT BREATHING TECHNIQUES AND DISTRACTION. PT WAS THEN GIVEN ATIVAN. ATIVAN IS EFFECTIVE.
--- NOTE | 2017-10-14 17:59 | NUR ---
PT IS RESTING, NO SIGNS OF RESPIRATORY DISTRESS, ATE FOOD, DENIES BACK PAIN OR ANY SIGNS OF UTI SUCH BURNING WHILE URINATING. SHOWS NO SIGNS OF ANXIETY.
--- NOTE | 2017-10-14 19:30 | NUR ---
PT IN ROOM IN NO ACUTE DISTRESS. STATES SHE FEELS OK BUT WITH DISCOMFORT TO RIGHT LEG. REQUESTING XANAX AT BEDTIME FOR COMFORT MEASURES. CALL LIGHT PLACED WITHIN REACH. CONTINUE TO MONITOR.
[2017-10-14 20:00] VITALS: BP 157/101
[2017-10-14] MEDS: ALPRAZOLAM 0.5 MG TABLET PO PRN (21:28)
--- NOTE | 2017-10-15 01:00 | NUR ---
Pt asleep at this time. No acute distress. Continue to monitor.
--- NOTE | 2017-10-15 05:00 | NUR ---
Pt in room in no acute distress. No c/o pain or discomfort at this time. BP noted 127/85. Pulse 94. Continue to monitor. Call light placed within reach.
[2017-10-15 06:37] VITALS: BP 127/85
--- NOTE | 2017-10-15 08:00 | NUR ---
Pt alert and oriented x 3. Pt is in no acute distress. Discussed plan of care for today re: fall precaution, and pain management. Pt agreeable with plan of care. Call light is within reach
[2017-10-15] MEDS: AMLODIPINE 5 MG TABLET PO SCH (08:29)
[2017-10-15] MEDS: TRAMADOL HCL 50 MG TABLET PO PRN (10:58)
[2017-10-15] MEDS: ACETAMINOPHEN 325 MG TABLET PO PRN (10:58)
[2017-10-15 11:21] VITALS: BP 152/92
[2017-10-15 15:42] VITALS: BP 145/89
--- NOTE | 2017-10-15 16:00 | NUR ---
Textile Colorist Dyer Spoke with patient re her disposition to SNF [facility] and spoke with family members ok with discharge. Pt was very anxious and requested for xanax. Xanax given as requested. Report given to Sandra from [facility]. Pt refused vaccination and will f/u with her primary doctor. No sob noted.
[2017-10-15] MEDS: ALPRAZOLAM 0.5 MG TABLET PO PRN (16:12)
--- NOTE | 2017-10-17 14:24 | NUR ---
This SW received a call from Easton at APS [phone], in response to the APS report that this SW had filed on 10/11/17. Easton was inquiring about patient's current location and discharge plans. TIMMY informed Easton that she is not the assigned inpatient SW for patient. TIMMY identified Belkys at x [phone] as patient's inpatient SW/shoe parts caser, and transferred the call to Belkys. Easton thanked this SW for her time.
== END 2017-10-15 16:20 | DRG 689 ==
LOC: ER 13:50 → MED 17:10
PROVIDERS: ADMIT Internal Medicine; ATTEND Internal Medicine
DX: N39.0 Urinary tract infection, site not specified (principal); N17.0 Acute kidney failure with tubular necrosis; R44.3 Hallucinations, unspecified; N18.3 Chronic kidney disease, stage 3 (moderate); I12.9 Hypertensive chronic kidney disease with stage 1 through stage 4 chronic kidney disease, or unspecified chronic kidney disease; Z79.899 Other long term (current) drug therapy; F29 Unspecified psychosis not due to a substance or known physiological condition
CPT/HCPCS: 36415; 70030-TC; 71010; 83605; 83735; 84100; 85025; 85730; 87040; 87086; 93005; A4663; J0696; J2060; J3490; J7060

== ENCOUNTER 2018-04-01 14:06 | Inpatient (IN) | payer OTHER, MEDICAID ==
[~2018-04-01] VITALS: Ht 152.4 cm; Wt 61.7 kg
[~2018-04-01 14:06] MED LIST changes: +ACET-2154 PO; -ACET325T53 PO; +ALPR0.5T PO; -AMLO5TAB2 PO; +AMLO5TAB4 PO; -LORA2VIA6 IV
--- NOTE | 2018-04-01 14:06 | NUR ---
Patient is alert to name only with pressure of speech noted with large amount of foul-smelling soft,mushed & dried feces to all fingers, both hands and lower body, respiration:easy, LY, currently patient follows command
--- NOTE | 2018-04-01 14:37 | NUR ---
Extensive skin care was provided (approx 25 min) to remove most of the dried feces from the skin, fingers, hands and lower body. Comfort and safety measures provided.
[2018-04-01 15:18] LABS: BASOPHILS # (AUTO) 0.1 K/uL (0.0-8.0); BASOPHILS % (AUTO) 0.8 % (0.0-2.0); EOSINOPHILS % (AUTO) 0.3 % (0.0-7.0); HEMATOCRIT 38.4 % (31.2-41.9); HEMOGLOBIN 12.9 g/dL (10.9-14.3); LYMPHOCYTES # (AUTO) 1.3 K/uL (20.0-40.0); LYMPHOCYTES % (AUTO) 16.6 % (20.5-51.5); MEAN CORPUSCULAR HEMOGLOBIN 31.8 uug (24.7-32.8); MEAN CORPUSCULAR HGB CONC 34 g/dL (32.3-35.6); MEAN CORPUSCULAR VOLUME 94.6 fL (75.5-95.3); MONOCYTES # (AUTO) 0.4 K/uL (2.0-10.0); MONOCYTES % (AUTO) 4.8 % (0.0-11.0); NEUTROPHILS # (AUTO) 6.3 K/uL (1.8-8.9); NEUTROPHILS % (AUTO) 77.5 % (38.5-71.5); PLATELET COUNT (AUTO) 331 K/uL (179-408); RED BLOOD CELL COUNT(AUTO) 4.06 MIL/uL (3.63-4.92); WHITE BLOOD COUNT (AUTO) 8.1 K/uL (3.8-11.8)
[2018-04-01 15:26] LABS: CARBON DIOXIDE 21 mmol/L (21-32); CHLORIDE 108 mmol/L (98-107); CREATININE 1.8 mg/dL (0.6-1.3); GLUCOSE 97 mg/dL (74-106); POTASSIUM 4.4 mmol/L (3.5-5.1); UREA NITROGEN, BLOOD 30 mg/dL (7-18)
[2018-04-01 15:27] LABS: *BLOOD, URINE NEGATIVE (NEGATIVE); *COLOR,URINE YELLOW (YELLOW); *KETONES,URINE NEGATIVE (NEGATIVE); *PROTEIN,URINE 2+ (NEGATIVE); *UROBILINOGEN,URINE 0.2 E.U./dl (NORMAL); LEUKOCYTE ESTERASE ,URINE NEGATIVE (NEGATIVE); NITRITE, URINE NEGATIVE (NEGATIVE); PH,URINE 5.5 (5.0-8.0); UGLUCOSE NEGATIVE (NEGATIVE)
[2018-04-01 15:36] LABS: ETHANOL < 3 MG/DL (0-0)
[2018-04-01 15:42] LABS: ALANINE AMINOTRANSFERASE 21 U/L (14-59); ALKALINE PHOSPHATASE 148 U/L (50-136); ASPARTATE AMINOTRANSFERASE 37 U/L (15-37); BILIRUBIN,DIRECT 0.2 mg/dL (0.0-0.2); BILIRUBIN,TOTAL 0.6 mg/dL (0.2-1.0); TOTAL PROTEIN, SERUM 8.2 g/dL (6.4-8.2)
[2018-04-01 15:43] LABS: ACETAMINOPHEN < 2.0 ug/mL (10-30)
[2018-04-01 15:45] LABS: *AMPHETAMINE, URINE NEGATIVE (NEGATIVE); *BARBITURATE, URINE NEGATIVE (NEGATIVE); *CANNABINOID, URINE NEGATIVE (NEGATIVE); *COCCAINE, URINE NEGATIVE (NEGATIVE); *OPIATE, URINE NEGATIVE (NEGATIVE); *PHENCYCLIDINE SCREEN,URINE NEGATIVE (NEGATIVE)
[2018-04-01 15:59] LABS: *BILIRUBIN,URIN NEGATIVE (NEGATIVE); *CLARITY,URINE SLIGHTLY HAZY (CLEAR)
[2018-04-01 16:02] LABS: CALCIUM OXALATE CRYSTALS,UR MODERATE /HPF (NONE SEEN); MUCUS,URINE MANY /LPF (0-FEW); SQUAMOUS EPITHELIAL CELL,UR FEW /HPF (NONE SEEN); WBC,URINE 0-3 /HPF (0-3)
[2018-04-01 16:03] LABS: THYROID STIMULATING HORMONE 0.296 mIU/mL (0.358-3.740)
--- NOTE | 2018-04-01 16:09 | NUR ---
Patient is medically cleared, pending psych rack production worker's evaluation.
--- NOTE | 2018-04-01 16:41 | NUR ---
NO INFO ON MEDICATIONS OBTAINED FROM PARAMEDICS. PT IS UNABLE TO FURNISH INFO ON HOME MEDICATIONS.
--- NOTE | 2018-04-01 16:48 | NUR ---
Psych mental health social worker Angeles is now here to evaluate the patient.
--- NOTE | 2018-04-01 17:25 | NUR ---
Patient is seen sliding slowly on the lower part of the gurney, repositioning & frequent checks maintained.
--- NOTE | 2018-04-01 17:48 | NUR ---
Dinner tray is at bedside, patient is still confused, disorganized, uncooperative@this time
--- NOTE | 2018-04-01 17:51 | NUR ---
Patient is waiting for the admission papers@this time.
[2018-04-01 18:20] VITALS: BP 145/82
[2018-04-01] MEDS ORDERED: MAGNESIUM HYDROXIDE 30 ML LIQUID UDC PO PRN (18:30)
[2018-04-01] MEDS ORDERED: MAG HYDROX/AL HYDROX/SIMETH 30 ML LIQUID UDC PO PRN (18:30)
[2018-04-01] MEDS ORDERED: TEMAZEPAM 7.5 MG CAPSULE PO PRN (18:30)
[2018-04-01 19:30] VITALS: BP 136/100
--- NOTE | 2018-04-01 21:15 | NUR ---
ADMISSION NOTE: 67 Y.O FEMALE BROUGHT TO MHU FROM ER, ACCOMPANIED BY ER STAFF, Pt ON A 5150 HOLD FOR GD. ACCORDING TO THE HOLD, THE Pt WAS BROUGHT IN BY PARAMEDICS AFTER SHE WAS FOUND BY THE NEIGHBORS CONFUSED, INCOHERENTLY IN THE STAIRWELL OF HER APARTMENT BUILDING COVERED WITH STOOL. DURING FACE TO FACE ASSESSMENT, Pt IS CONFUSED, DISORGANIZED, DISORIENTED, ANXIOUS, AT TIMES TANGENTIAL, BIZARRE BEHAVIOR. Pt LIVES BY HERSELF, UNABLE TO PROVIDE VIABLE PLAN FOR SELF CARE. RN CONCURS WITH THE HOLD. ADVISEMENT AND PATIENT RIGHTS HANDBOOK GIVEN. UPON FACE TO FACE ASSESSMENT, Pt APPEARS TO REFLECT WHAT IS ON THE HOLD. Pt RESPONDS TO NAME BUT IS CONFUSED AND DISORIENTED TO TIME AND PLACE, UNABLE TO PROVIDE INFORMATION OR HISTORY. Pt IS COOPERATIVE WITH ASSESSMENT, COMPLIANT AND REDIRECTABLE. Pt IS NOTED ANXIOUS, RESTLESS, AND RESPONDING TO INTERNAL STIMULI. Pt IS SEEN TALKING TO THE WALL, HALLUCINATING, AND UNABLE TO HOLD CONVERSATION WITH NURSE. Pt IS TOO CONFUSED AND DISORIENTED, UNABLE TO STATE IF SHE HAS SUICIDAL IDEATION OR AGREES TO CONTRACT FOR SAFETY. DR. LAINEZ AND DR. HARVEY FROM [facility] HAVE BEEN NOTIFIED OF Pt ADMISSION, ORDERS RECEIVED. Pt ORIENTED TO UNIT AND EDUCATED ON UNIT RULES. VS STABLE, DENIES PAIN, NO AGGRESSIVE BEHAVIOR NOTED. WILL ADMINISTER ATIVAN PO PRN FOR ANXIETY.
[2018-04-01] MEDS: LORAZEPAM 0.5 MG TABLET PO PRN (21:54)
[2018-04-01] MEDS: ACETAMINOPHEN 325 MG TABLET PO PRN (21:54)
[2018-04-02] MEDS: LORAZEPAM 0.5 MG TABLET PO PRN ×2 (02:59→08:04)
--- NOTE | 2018-04-02 04:14 | NUR ---
Pt WAS RESPONDING TO INTERNAL STIMULI, HALLUCINATING AND TALKING TO SELF AND TO THE WALL. GIVEN ATIVAN 0.5 MG PO PRN AND TYLENOL 650 MG PO PRN @ 2152. Pt WAS STILL RESPONDING TO INTERNAL STIMULI AND UNABLE TO SLEEP. GIVEN RESTORIL 7.5 MG PO PRN FOR INSOMNIA @ 2300 AFTER 1 HOUR OF BEING GIVEN ATIVAN. MEDICATION WAS NOT EFFECTIVE. Pt WAS IN BED STILL RESPONDING TO INTERNAL STIMULI, UNABLE TO SLEEP. Pt WAS FOUND STANDING ON THE HALLWAY OUTSIDE OF ROOM TALKING TO HERSELF. Pt WAS RESTLESS AND ANXIOUS, WAS GIVEN ANOTHER DOSE OF ATIVAN 5 MG PO PRN FOR ANXIETY @ 0300, WAS PLACED IN CHANCE-CHAIR FOR SAFETY. Pt WAS BECOMING AGITATED AND DEMANDING TO SPEAK TO HER PARENTS. Pt WAS RE-ORIENTED BY NURSE, Pt STILL RESTLESS. WILL MONITOR Pt BEHAVIOR CLOSELY.
--- NOTE | 2018-04-02 06:41 | NUR ---
Pt SLEPT POORLY THROUGHOUT THE NIGHT, PRN MEDS WERE NOT EFFECTIVE, Pt CONTINUES TO RESPOND TO INTERNAL STIMULI, TALKING TO SELF AND HALLUCINATING. Pt IS CONTINUOUSLY BEING MONITORED AND OBSERVED CLOSELY.
[2018-04-02 07:30] VITALS: BP 143/93
[2018-04-02] MEDS: ACETAMINOPHEN 325 MG TABLET PO PRN (08:05)
[2018-04-02] MEDS ORDERED: AMLODIPINE 5 MG TABLET PO SCH (09:00)
[2018-04-02 14:16] VITALS: BP 142/78
[2018-04-02 14:51] LABS: *BILIRUBIN,URIN NEGATIVE (NEGATIVE); *BLOOD, URINE Trace-intact (NEGATIVE); *CLARITY,URINE CLEAR (CLEAR); *COLOR,URINE YELLOW (YELLOW); *KETONES,URINE NEGATIVE (NEGATIVE); *PROTEIN,URINE NEGATIVE (NEGATIVE); *UROBILINOGEN,URINE 0.2 E.U./dl (NORMAL); LEUKOCYTE ESTERASE ,URINE NEGATIVE (NEGATIVE); NITRITE, URINE NEGATIVE (NEGATIVE); PH,URINE 5.5 (5.0-8.0); UGLUCOSE NEGATIVE (NEGATIVE)
[2018-04-02 15:10] LABS: *CREATININE,URINE 17.7 mg/dL (30-125); *URINE TOTAL PROTEIN RANDOM 15.1 mg/dL (<150/24HR)
[2018-04-02 15:15] VITALS: BP 132/76
[2018-04-02 15:22] LABS: BACTERIA,URINE NONE SEEN /HPF (NONE SEEN); RBC,URINE 0-3 /HPF (0-3); SQUAMOUS EPITHELIAL CELL,UR FEW /HPF (NONE SEEN); WBC,URINE 0-3 /HPF (0-3)
[2018-04-02 15:29] LABS: CREATININE 1.3 mg/dL (0.6-1.3); POTASSIUM 4.6 mmol/L (3.5-5.1)
--- NOTE | 2018-04-02 16:37 | NUR ---
DC Note: Patient will be transferred to [facility] [[address] [place] [address]; [phone] for report] via private transportation. Spoke to Vibha at [facility] ([phone]) who will arrange transportation for the patient and then report it to auditor supervisor Jose. Spoke to Esme at the [facility] who states they are ready to accept the patient today. Per Esme, pt's accepting Psychiatrist is Dr. Yu. Spoke with patient who is aware and agreeable with lateral transfer. Spoke with patient's Uncle Anmol ([phone]) who is aware and agreeable with patients transfer.
--- NOTE | 2018-04-02 17:26 | NUR ---
PATIENT BEING TRANSFERRED TO [facility], UNDER PSYCHIATRIC CARE OF DR. TONEY. REPORT GIVEN TO MIRELA TAYLOR AT [facility]. [facility] IS PROVIDING TRANSPORTATION FOR PATIENT. ORIGINAL COPY OF 3813 HOLD PROVIDED. PT'S PERSONAL BELONGINGS IN MHU UNIT, [facility] CHECKED, SIGNED, AND WILL BE GIVEN TO PATIENT AMBULANCE ARRIVES. STABLE CONDITION, NO S/S OF DISTRESS. NO COMPLAINTS OF SHORTNESS, DISCOMFORT, PAIN. DENIES SI/HI; AH/VH.
--- NOTE | 2018-04-02 20:07 | NUR ---
PATIENT DISCHARGED TO [facility] VIA AMBULANCE. EMT TRANSPORTED HER IN [facility] OUT OF THE UNIT VIA AMBULANCE, VITAL SIGNS STABLE, BELONGINGS AND REPORTED GIVEN TO RAutumn EMT
[2018-04-03] MEDS ORDERED: AMLODIPINE 5 MG TABLET PO SCH (09:00)
== END 2018-04-02 20:05 | DRG 885 ==
LOC: ER 14:06 → GPS 18:01
PROVIDERS: ADMIT Psychiatry & Neurology Psychiatry; ATTEND Internal Medicine
DX: F23 Brief psychotic disorder (principal); N17.9 Acute kidney failure, unspecified; N18.9 Chronic kidney disease, unspecified; G93.40 Encephalopathy, unspecified; E86.0 Dehydration; Z98.84 Bariatric surgery status; Z79.899 Other long term (current) drug therapy; I12.9 Hypertensive chronic kidney disease with stage 1 through stage 4 chronic kidney disease, or unspecified chronic kidney disease
CPT/HCPCS: 36415; 70030-TC; 70450; 71045; 76770; 80307; 83605; 84156; 84300; 84443; 85025; 85730; 87040; 87086; 93005; A4663; C1758; G0480; G0480-TC

== ENCOUNTER 2019-02-28 05:03 | Inpatient (IN) | payer MEDICAID, MEDICARE, OTHER ==
[~2019-02-28] VITALS: Ht 154.9 cm; Wt 67.6 kg
[~2019-02-28 05:03] MED LIST changes: -ALPR0.5T PO; -HALO5VIA9 IM
--- NOTE | 2019-02-28 05:13 | NUR ---
Medically cleared by Dr Gasca
[2019-02-28] MEDS ORDERED: METOPROLOL SUCC ER 50 MG TAB PO (05:21)
[2019-02-28] MEDS ORDERED: RISPERIDONE 0.5 MG TABLET (05:21)
[2019-02-28] MEDS ORDERED: TRAZODONE 50 MG TABLET (05:21)
[2019-02-28] MEDS ORDERED: IBUP-1955 PO (05:21)
[2019-02-28] MEDS ORDERED: AMLODIPINE BESYLATE 5 MG TAB (05:21)
[2019-02-28] MEDS ORDERED: ALPRAZOLAM 1 MG TABLET (05:21)
[2019-02-28] MEDS ORDERED: OMEPRAZOLE DR 20 MG CAPSULE PO (05:21)
[2019-02-28 06:10] VITALS: BP 140/94
--- NOTE | 2019-02-28 06:55 | NUR ---
received to care, from the emergency room, on a 72 hour hold for gravely disabled, a transfer from [facility]. according to the hold, she believes drug dealers are stealing from her apartment, and has been unable to sleep. she also reports having discontinued her psychotropic medications. upon arrival, she appeared disheveled. denies having any psychiatric problems currently. pt was cooperative with admission, and was assisted to bed. currently appears to be asleep. no distress noted.
[2019-02-28 07:30] VITALS: BP 158/96
[2019-02-28] MEDS ORDERED: MAGNESIUM HYDROXIDE 30 ML LIQUID UDC PO PRN (08:00)
[2019-02-28] MEDS ORDERED: ALPR0.5T8 PO (09:56)
[2019-02-28] MEDS ORDERED: RISP0.5T5 PO (10:03)
[2019-02-28] MEDS ORDERED: METO-357 PO (10:41)
[2019-02-28] MEDS ORDERED: OMEP20CA10 PO (10:42)
[2019-02-28] MEDS: LORAZEPAM 0.5 MG TABLET PO PRN ×2 (13:02→19:04)
[2019-02-28] MEDS: MAG HYDROX/AL HYDROX/SIMETH 30 ML LIQUID UDC PO PRN (13:20)
--- NOTE | 2019-02-28 13:21 | NUR ---
Initial Discharge Instructions: Pt currently resides alone at [address] [place] [address] [address], [facility] [address]. Pt is requesting to be discharged back to home. SW will continue to collaborate with pt, family, and MD regarding most appropriate discharge plans for this patient. SW will form a safe and proper discharge plan.
[2019-02-28 16:00] VITALS: BP 120/78
[2019-02-28] MEDS: risperiDONE 1 MG/ML UDC PO SCH ×2 (16:23→20:26)
--- NOTE | 2019-02-28 18:22 | NUR ---
Gps/Rack Worker- Less anxious, calmer this pm making her needs known to the staff.
[2019-02-28] MEDS: ACETAMINOPHEN 325 MG TABLET PO PRN (19:04)
--- NOTE | 2019-02-28 19:35 | NUR ---
Received patient asleep in bed. No longer complaining of pain after prn pain medications were given by day shift nurse. Patient compliant with medications. Pleasant upon approach, calm and engages in conversation. No complaints at the moment. Ensured safety and comfort. Will continue to monitor.
[2019-02-28 20:33] VITALS: BP 169/109
--- NOTE | 2019-03-01 06:06 | NUR ---
Patient slept 9.15hours. No distress or agitation noted this shift. No recurrence of pain. Patient has been compliant with medications.Ensured safety and comfort.
[2019-03-01 07:20] LABS: BASOPHILS # (AUTO) 0.1 K/uL (0.0-8.0); BASOPHILS % (AUTO) 1.5 % (0.0-2.0); EOSINOPHILS # (AUTO) 0.1 K/uL (0.0-0.7); EOSINOPHILS % (AUTO) 1.9 % (0.0-7.0); HEMATOCRIT 35.9 % (31.2-41.9); LYMPHOCYTES # (AUTO) 1.1 K/uL (20.0-40.0); LYMPHOCYTES % (AUTO) 20.1 % (20.5-51.5); MEAN CORPUSCULAR HEMOGLOBIN 29.8 uug (24.7-32.8); MEAN CORPUSCULAR HGB CONC 33 g/dL (32.3-35.6); MEAN CORPUSCULAR VOLUME 89.1 fL (75.5-95.3); MONOCYTES # (AUTO) 0.5 K/uL (2.0-10.0); NEUTROPHILS # (AUTO) 3.7 K/uL (1.8-8.9); NEUTROPHILS % (AUTO) 67.5 % (38.5-71.5); PLATELET COUNT (AUTO) 222 K/uL (179-408); RED BLOOD CELL COUNT(AUTO) 4.03 MIL/uL (3.63-4.92); WHITE BLOOD COUNT (AUTO) 5.4 K/uL (3.8-11.8)
[2019-03-01 07:30] VITALS: BP 162/101
[2019-03-01] MEDS: LORAZEPAM 0.5 MG TABLET PO PRN ×2 (07:49→13:48)
[2019-03-01] MEDS: ACETAMINOPHEN 325 MG TABLET PO PRN (07:49)
[2019-03-01 07:52] LABS: THYROID STIMULATING HORMONE 0.087 mIU/mL (0.358-3.740)
[2019-03-01 08:18] LABS: BILIRUBIN,TOTAL 0.5 mg/dL (0.2-1.0); CREATININE 1.2 mg/dL (0.6-1.3); MAGNESIUM 2.3 mg/dL (1.8-2.4); PHOSPHOROUS 2.9 mg/dL (2.5-4.9); POTASSIUM 3.8 mmol/L (3.5-5.1); TOTAL PROTEIN, SERUM 7.8 g/dL (6.4-8.2)
[2019-03-01] MEDS: risperiDONE 1 MG/ML UDC PO SCH ×2 (08:47→20:36)
[2019-03-01] MEDS: MAG HYDROX/AL HYDROX/SIMETH 30 ML LIQUID UDC PO PRN ×2 (09:45→18:20)
--- NOTE | 2019-03-01 12:40 | NUR ---
edge worker received VM from pts cousin Santa Negrete ([phone]) pertaining to pts care. edge worker provided update on pts status. Santa resides in [facility] however is active in pts care, she is currently the pts Power of Switch Repairer. Santa is to visit pt tomorrow social worker assistant requested pts cousins to bring copy of POA to [facility]. Santa provided minor insight into pts mental health history, pt has been experiencing increasing psychiatric issues. Pts other cousin who resides in [place], had recently visited pt and stated her house is in a mess. Family is worried about pts current mental health, pts cousin Santa states that pt has not been in to see a mental health provider and when asked she always states she is going to go see someone however has not gone. Pt does not drive.
[2019-03-01] MEDS: AMLODIPINE 5 MG TABLET PO SCH (14:00)
[2019-03-01] MEDS: METOPROLOL SUCCINATE XL 50 MG TAB.SR.24H PO SCH (14:00)
[2019-03-01 16:00] VITALS: BP 133/70
[2019-03-01] MEDS: IBUPROFEN 600 MG TABLET PO PRN (16:24)
--- NOTE | 2019-03-01 17:55 | NUR ---
received patient awake on bed , verbalizes that shes having anxiety, prn meds given, patient started with her anti HPN medication, patient kept safe at all times, will continue monitor
[2019-03-01 19:55] VITALS: BP 151/97
[2019-03-01 20:05] VITALS: BP 137/84
[2019-03-01] MEDS: TEMAZEPAM 7.5 MG CAPSULE PO PRN (22:15)
[2019-03-02] MEDS: PANTOPRAZOLE SODIUM 40 MG TABLET.DR PO SCH (06:08)
--- NOTE | 2019-03-02 06:33 | NUR ---
Remain calm and cooperative with medications and care. slept 8 hrs through the night. no behavior problem noted . continue plan of care.
[2019-03-02 07:30] VITALS: BP 152/95
[2019-03-02] MEDS: LORAZEPAM 0.5 MG TABLET PO PRN ×3 (07:48→22:48)
[2019-03-02] MEDS: AMLODIPINE 5 MG TABLET PO SCH (08:00)
[2019-03-02] MEDS: risperiDONE 1 MG/ML UDC PO SCH ×2 (08:01→20:41)
[2019-03-02] MEDS: METOPROLOL SUCCINATE XL 50 MG TAB.SR.24H PO SCH (08:01)
[2019-03-02] MEDS ORDERED: Medication Not On Formulary EA (Omeprazole 1 CAP) PO SCH (09:00)
[2019-03-02] MEDS ORDERED: AMLODIPINE 5 MG TABLET PO SCH (09:00)
[2019-03-02] MEDS ORDERED: METOPROLOL SUCCINATE XL 50 MG TAB.SR.24H PO SCH (09:00)
[2019-03-02 16:00] VITALS: BP 132/95
--- NOTE | 2019-03-02 18:00 | NUR ---
RECEIVED PATIENT VERBALIZING OF ANXIETY, PRN MEDS GIVEN, PATIENT PREOCCUPIED ON HER MEDICATION, PATIENT VERBALIZES ABOUT SURGERY AND HER AUNTIE IN HER ROOM, PATIENT SPOKE WITH FAMILY ON PHONE AND SAYING SHES HAVING HALLUCINATION, PATIENT TOOK PRN MEDICATION AND IMMEDIATELY SHE FEELS BETTER PATIENT CLAIMS, WILL CONTINUE MONITOR ON PATIENT BEHAVIOR
--- NOTE | 2019-03-02 20:00 | NUR ---
received pt in room stses she need mor emedication at this time ,pt told i have to check record first and will medicated accordingly
[2019-03-02 20:11] VITALS: BP 161/106
[2019-03-02] MEDS: TEMAZEPAM 7.5 MG CAPSULE PO PRN (20:41)
[2019-03-02] MEDS: IBUPROFEN 600 MG TABLET PO PRN (20:41)
--- NOTE | 2019-03-02 23:00 | NUR ---
pt appears to be very anxious and requested a prn, same given with good effect ,pt settled in bed in no further distress
[2019-03-03] MEDS: PANTOPRAZOLE SODIUM 40 MG TABLET.DR PO SCH (06:36)
[2019-03-03 07:30] VITALS: BP 149/93
[2019-03-03] MEDS: risperiDONE 1 MG/ML UDC PO SCH ×2 (08:44→20:24)
[2019-03-03] MEDS: METOPROLOL SUCCINATE XL 50 MG TAB.SR.24H PO SCH (08:46)
[2019-03-03] MEDS: AMLODIPINE 5 MG TABLET PO SCH (08:46)
[2019-03-03] MEDS: LORAZEPAM 0.5 MG TABLET PO PRN ×2 (08:51→18:45)
[2019-03-03] MEDS: HYDROXYZINE PAMOATE 25 MG CAPSULE PO PRN (13:43)
[2019-03-03 16:00] VITALS: BP 145/110
[2019-03-03] MEDS: ACETAMINOPHEN 325 MG TABLET PO PRN (16:45)
[2019-03-03 20:29] VITALS: BP 144/89
--- NOTE | 2019-03-03 21:00 | NUR ---
GPS Nursing Notes: Rec'd pt in bed with eyes closed, easily arousable to name. No s/s of acute distress noted. Pt A&O x3. Per report, pt admitted for increasing paranoia that a drug dealer is trying to break into her house and that people are stealing from her. No episode during dayshift. No episode at this time. Took all due meds. All safety precautions in place. Will cont to monitor.
[2019-03-04] MEDS: TEMAZEPAM 7.5 MG CAPSULE PO PRN ×2 (01:32→23:43)
[2019-03-04] MEDS: HYDROXYZINE PAMOATE 25 MG CAPSULE PO PRN (06:08)
[2019-03-04] MEDS: PANTOPRAZOLE SODIUM 40 MG TABLET.DR PO SCH (06:08)
[2019-03-04 07:30] VITALS: BP 138/105
[2019-03-04] MEDS: AMLODIPINE 5 MG TABLET PO SCH (08:19)
[2019-03-04] MEDS: METOPROLOL SUCCINATE XL 50 MG TAB.SR.24H PO SCH (08:20)
[2019-03-04] MEDS: IBUPROFEN 600 MG TABLET PO PRN ×2 (08:20→14:29)
[2019-03-04] MEDS: risperiDONE 1 MG/ML UDC PO SCH ×2 (08:20→20:11)
[2019-03-04] MEDS: LORAZEPAM 0.5 MG TABLET PO PRN (15:36)
--- NOTE | 2019-03-04 16:44 | NUR ---
Firearms Report: TIMMY completed and submitted [employer] Firearms Report for 5250 GD certification.
[2019-03-04 16:47] VITALS: BP 160/115
--- NOTE | 2019-03-04 17:03 | NUR ---
1:1 session GOAL Patient will participate in a 1:1 discussion with TIMMY business analytics intern. INTERVENTION SW Automotive Service Porter facilitated a discussion about what the patient wishes could be different as a result of her stay at [facility]. SW Automotive Service Porter informed patient about [facility] guidelines. SW Automotive Service Porter explored patients perceived barriers to mental wellness. SW Automotive Service Porter assisted patient in formulating talking points for when she does speak to her psychiatrist. SW Automotive Service Porter provided patient with IHSS information and application for use upon pt.s discharge. SW business analytics intern also discuss meals on wheels with the patient RESPONSE Patient expressed interest in participating in a discussion with TIMMY business analytics intern. The patient inquired about what her stay in [facility] will look like. Patient expressed her symptomology, and anxiety surrounding speaking to her psychiatrist. Patient actively participated in identifying specific points that she wanted to talk to her psychiatrist about and then stated, I feel more confident talking to my psychiatrist now. Patient expressed interest in meal services as well as housekeeping services, and was receptive to the information provided. Patients remained calm and cooperative throughout discussion. PLAN Patient will be invited to attend the next individual or group discussion. Patient to apply for IHSS when discharged. TIMMY Pappas or other social media senior associate will connect patient with meals on wheels upon patient discharge.
--- NOTE | 2019-03-04 18:04 | NUR ---
RECEIVED PATIENT AWAKE ORIENTED X3, PATIENT SELF CARE AND AMBULATORY, VERBALIZES OF LEFT LOWER EXT PAIN, WITH PRN MEDS GIVEN , PATIENT ANXIOUS AND WOULD ASK FOR HER MEDICATION, WILL CONTINUE MONITOR
[2019-03-04 20:21] VITALS: BP 161/108
[2019-03-05] MEDS: LORAZEPAM 0.5 MG TABLET PO PRN ×2 (05:38→13:55)
[2019-03-05] MEDS: PANTOPRAZOLE SODIUM 40 MG TABLET.DR PO SCH (06:10)
[2019-03-05 07:44] VITALS: BP 152/100
[2019-03-05] MEDS: risperiDONE 1 MG/ML UDC PO SCH ×2 (08:06→20:04)
[2019-03-05] MEDS: AMLODIPINE 5 MG TABLET PO SCH (08:06)
[2019-03-05] MEDS: IBUPROFEN 600 MG TABLET PO PRN ×2 (08:06→17:15)
[2019-03-05] MEDS: METOPROLOL SUCCINATE XL 50 MG TAB.SR.24H PO SCH (08:07)
--- NOTE | 2019-03-05 12:03 | NUR ---
Discharge Planning Note: SW placed call to patient's cousin, Yandy Negrete ([phone]) to discuss discharge planning and pt prognosis. SW provided opportunity for family to express concerns and ventilate feelings. SW provided education about Intensive Outpatient Programs, and pt's cousin expressed interest in this for the patient. SW will begin referring patient to IOP's and discuss options with pt and family. SW will continue to follow-up.
--- NOTE | 2019-03-05 16:21 | NUR ---
GPS: RECEIVED PATIENT AWAKE ON BED, PATIENT VERBALIZES THAT SHES ANXIOUS PRN MEDICATION GIVEN ORDERED, PATIENT DENIES SI AND HI, PATIENT ALSO DENIES HAVING ANY HALLUCINATION, SEEN PARTICIPATING WITH THE GROUP AND ATE HERE MEAL IN THE DINING ROOM, WILL CONTINUE MONITOR
[2019-03-05 16:59] VITALS: BP 139/102
[2019-03-05 20:00] VITALS: BP 149/104
[2019-03-05] MEDS: TEMAZEPAM 7.5 MG CAPSULE PO PRN (22:50)
[2019-03-06] MEDS: LORAZEPAM 0.5 MG TABLET PO PRN ×3 (03:39→23:56)
[2019-03-06] MEDS: PANTOPRAZOLE SODIUM 40 MG TABLET.DR PO SCH (06:16)
[2019-03-06 07:30] VITALS: BP 153/103
[2019-03-06] MEDS: METOPROLOL SUCCINATE XL 50 MG TAB.SR.24H PO SCH (08:19)
[2019-03-06] MEDS: risperiDONE 1 MG/ML UDC PO SCH ×2 (08:20→20:04)
[2019-03-06] MEDS: IBUPROFEN 600 MG TABLET PO PRN ×2 (08:20→19:57)
[2019-03-06] MEDS: AMLODIPINE 5 MG TABLET PO SCH (08:20)
--- NOTE | 2019-03-06 14:13 | NUR ---
Discharge Planning Note: TIMMY met with patient at bedside to discuss discharge planning. TIMMY educated patient about Intensive Outpatient Programs, and provided opportunity for patient to ask questions and explore options. Patient reported that she would be interested in an IOP. TIMMY placed call to [facility] Intensive Outpatient Program ([phone]) and spoke with Vehicle Window Tinter, Miko. Miko requested that patient's face sheet, H&P, and med list be faxed for the referral to [phone]. TIMMY faxed required documents. Awaiting authorization for patient. TIMMY will continue to follow-up.
[2019-03-06 16:00] VITALS: BP 145/103
--- NOTE | 2019-03-06 18:04 | NUR ---
GPS: RECEIVED PATIENT AWAKE ON BED, PATIENT VERBALIZES THAT SHES ANXIOUS PRN MEDICATION GIVEN ORDERED, PATIENT DENIES SI AND HI, PATIENT ALSO DENIES HAVING ANY HALLUCINATION, SEEN PARTICIPATING WITH THE GROUP AND ATE HERE MEAL IN THE DINING ROOM, PATIENT PREOCCUPIED WITH HER PAIN MEDICATION, WILL CONTINUE MONITOR
[2019-03-06 20:00] VITALS: BP 149/105
[2019-03-06] MEDS: TEMAZEPAM 7.5 MG CAPSULE PO PRN (21:30)
--- NOTE | 2019-03-06 22:00 | NUR ---
received to care, watching tv, pleasant but anxious. compliant with medications and staff direction. PRN restoril was given at 2129, for insomnia. as of 2199, she remains awake, in bed. no distress noted. will continue to monitor closely.
[2019-03-06] MEDS: ACETAMINOPHEN 325 MG TABLET PO PRN (23:56)
--- NOTE | 2019-03-06 23:56 | NUR ---
remains awake. PRN ativan given, along with a snack.
[2019-03-07] MEDS: PANTOPRAZOLE SODIUM 40 MG TABLET.DR PO SCH (06:41)
--- NOTE | 2019-03-07 07:04 | NUR ---
slept 6 hours
[2019-03-07 07:30] VITALS: BP 148/103
[2019-03-07] MEDS: METOPROLOL SUCCINATE XL 50 MG TAB.SR.24H PO SCH (08:39)
[2019-03-07] MEDS: risperiDONE 1 MG/ML UDC PO SCH ×2 (08:39→21:02)
[2019-03-07] MEDS: AMLODIPINE 5 MG TABLET PO SCH (08:39)
[2019-03-07] MEDS: IBUPROFEN 600 MG TABLET PO PRN ×2 (08:46→15:21)
[2019-03-07] MEDS: ACETAMINOPHEN 325 MG TABLET PO PRN ×3 (12:11→23:09)
[2019-03-07] MEDS: HYDROXYZINE PAMOATE 25 MG CAPSULE PO PRN (15:20)
[2019-03-07 16:16] VITALS: BP 153/99
[2019-03-07 20:00] VITALS: BP 167/107
--- NOTE | 2019-03-07 21:30 | NUR ---
received to care, lying in bed, pleasant but anxious. compliant with medications and staff direction. as of 2129, she remains awake, in bed. no distress noted. will continue to monitor closely.
[2019-03-07] MEDS: TEMAZEPAM 7.5 MG CAPSULE PO PRN (22:05)
--- NOTE | 2019-03-07 22:05 | NUR ---
remains awake. PRN restoril was given, along with a snack.
[2019-03-07] MEDS: LORAZEPAM 0.5 MG TABLET PO PRN (23:09)
--- NOTE | 2019-03-07 23:09 | NUR ---
remains awake. appears restless. PRN ativan was given at this time.
--- NOTE | 2019-03-08 06:00 | NUR ---
slept 5.5 hours
[2019-03-08] MEDS: PANTOPRAZOLE SODIUM 40 MG TABLET.DR PO SCH (06:23)
[2019-03-08 07:30] VITALS: BP 153/105
[2019-03-08 08:49] VITALS: BP 153/105
[2019-03-08] MEDS: AMLODIPINE 5 MG TABLET PO SCH (08:49)
[2019-03-08] MEDS: risperiDONE 1 MG/ML UDC PO SCH (08:49)
[2019-03-08] MEDS: METOPROLOL SUCCINATE XL 50 MG TAB.SR.24H PO SCH (08:49)
[2019-03-08] MEDS: IBUPROFEN 600 MG TABLET PO PRN (08:53)
--- NOTE | 2019-03-08 10:25 | NUR ---
DC Note: Patient will be discharged back home [[address], [address] [place] [address]; [phone]] via private transportation at 1pm. Patient will be picked-up by her cousin, Kaylin Moran ([phone]) who is agreeable to provide transportation. Also spoke with patients cousin, Yandy Negrete ([phone]) who is also aware and agreeable with discharge plans. Patient was briefed on her discharge plan and she is agreeable. Patient has asked for referrals for Primary Care Physicians, and patient was given a referral to the Multi-Specialty Clinic at [facility] [[address], [address] [place] [address]; [phone]]. Spoke with Iona at the net front end developer who states that the patient will be assigned to Dr. Jaswant Leonard when she comes in for a follow-up appointment. Patient will also be participating in the [facility] Intensive Outpatient Program [[address] [place] [address]; [phone]] and is scheduled to attend on March 11, 2019 at 1:30pm. Patient will be provided with transportation to the program on that day. Patient will also be assigned a Psychiatrist when she attends the program. Patient was also provided with outpatient mental health referrals to [facility] Crisis Line , Raquel Gallego , and the National Suicide Prevention Lifeline . Patient was provided with a referral to [facility] [[address] [place] [address]; [phone]] where she can walk in Monday through Monday from 8-5pm. Patient was further given referrals to [facility] [[address] [place] [address]; [phone]] to obtain in-home meal delivery, In-Home Supportive Services Application ([phone]); and transportation resources to ACCESS ([phone]).
--- NOTE | 2019-03-08 11:11 | NUR ---
Gps/Green Hide Inspector- Per Charge Nurse [facility], prescriptions was called to patient's pharmacy( [facility]Discharged planning in progress, patient's cousin Kaylin to case picker patient this afternoon., she will provide transportation. Patient was given a referral to Multi-specialty Clinic at [facility] per TIMMY. Discharged planning in progress.
--- NOTE | 2019-03-08 12:49 | NUR ---
Gps/Rescue Worker- Reviewed medications, discharged instructions, dietary restrictions, safety, follow up with PMD, and referrals per SW. patient verbalized understanding. All belongings and valuables given back to patient. Coumonika Ewing to transport pt. home.
--- NOTE | 2019-03-08 15:00 | NUR ---
Gps/Director Of Home Care Hospice- Patient's cousin Kaylin in to medicinal plant picker patient, all belongings /valuables given back to patient, reviewed dc. instructions, medications she needs to medicinal plant picker at [facility], f/u with her PMD patient and cousin verbalized understanding. Discharged to her home via private car accompanied by Kaylin.
== END 2019-03-08 15:00 | disposition home or self-care (01) | DRG 885 ==
LOC: ER 05:05 → GPS 05:39
PROVIDERS: ADMIT Psychiatry & Neurology Psychiatry; ATTEND Internal Medicine Nephrology
DX: F29 Unspecified psychosis not due to a substance or known physiological condition (principal); N18.9 Chronic kidney disease, unspecified; N17.9 Acute kidney failure, unspecified; G93.40 Encephalopathy, unspecified; I12.9 Hypertensive chronic kidney disease with stage 1 through stage 4 chronic kidney disease, or unspecified chronic kidney disease; Z98.84 Bariatric surgery status; I10 Essential (primary) hypertension
CPT/HCPCS: 36415; 83735; 84100; 84443; 84480; 85025

== ENCOUNTER 2019-05-24 10:37 | Emergency (ER) | payer MEDICARE ==
[~2019-05-24] VITALS: Ht 157.5 cm; Wt 56.7 kg
[~2019-05-24 10:37] MED LIST changes: -ACET-2154 PO; +IBUP-1955 PO; +METO-357 PO; +OMEP20CA11 PO
--- NOTE | 2019-05-24 10:42 | NUR ---
PT IS A/OX4, BIB [facility] FROM PRIVATE RESIDENCE, FOR HEAD INJURY S/P FALL. PER CHURCH ORGANIST'S REPORT, PT RANG A NEIGHBOR'S DOORBELL WHILE NAKED AND RAN BACK TO HER APARTMENT. THE NEIGHBOR WITNESSED THE PT TRIP AND FALL SHE RAN BACK INTO HER OWN APARTMENT. PT PRESENTS W/ ABRASIONS TO THE R ORBITAL, POSSIBLY FROM THE FALL. PT IS A/OX4, BUT SLOW TO RESPOND. RA88 FOUND 2 EMPTY BOTTLES OF XANAX BY HER BEDSIDE. BS WAS 102 IN THE FIELD. VSS. PT DOES NOT APPEAR TO BE IN ANY APPARENT DISTRESS AT THIS TIME.
[2019-05-24] MEDS ORDERED: IV NORMAL SALINE 500 ML BAG IV ONE (10:45)
[2019-05-24] MEDS ORDERED: ALPR0.255 PO (10:49)
--- NOTE | 2019-05-24 11:02 | NUR ---
PT TAKEN TO RADIOLOGY FOR IMAGING.
[2019-05-24 11:15] LABS: ALANINE AMINOTRANSFERASE 8 U/L (14-59); ALKALINE PHOSPHATASE 189 U/L (50-136); ASPARTATE AMINOTRANSFERASE 22 U/L (15-37); BILIRUBIN,DIRECT 0.1 mg/dL (0.0-0.2); BILIRUBIN,TOTAL 0.4 mg/dL (0.2-1.0); TOTAL PROTEIN, SERUM 7.5 g/dL (6.4-8.2)
[2019-05-24 11:16] LABS: ACETAMINOPHEN < 2.0 ug/mL (10-30)
[2019-05-24 11:17] LABS: BASOPHILS % (AUTO) 0.8 % (0.0-2.0); EOSINOPHILS # (AUTO) 0.1 K/uL (0.0-0.7); EOSINOPHILS % (AUTO) 1.5 % (0.0-7.0); HEMATOCRIT 39.4 % (31.2-41.9); HEMOGLOBIN 13.1 g/dL (10.9-14.3); LYMPHOCYTES # (AUTO) 1.5 K/uL (20.0-40.0); LYMPHOCYTES % (AUTO) 23.9 % (20.5-51.5); MEAN CORPUSCULAR HEMOGLOBIN 28.4 uug (24.7-32.8); MEAN CORPUSCULAR HGB CONC 33 g/dL (32.3-35.6); MEAN CORPUSCULAR VOLUME 85.2 fL (75.5-95.3); MONOCYTES # (AUTO) 0.5 K/uL (2.0-10.0); MONOCYTES % (AUTO) 7.4 % (0.0-11.0); NEUTROPHILS # (AUTO) 4.3 K/uL (1.8-8.9); NEUTROPHILS % (AUTO) 66.4 % (38.5-71.5); RED BLOOD CELL COUNT(AUTO) 4.62 MIL/uL (3.63-4.92); WHITE BLOOD COUNT (AUTO) 6.5 K/uL (3.8-11.8)
[2019-05-24 11:20] LABS: PLATELET COUNT (AUTO) 350 K/uL (179-408)
--- NOTE | 2019-05-24 11:21 | NUR ---
PT BACK IN ER FROM RADIOLOGY.
[2019-05-24 11:32] LABS: ETHANOL < 3 MG/DL (0-0)
[2019-05-24 11:37] LABS: THYROID STIMULATING HORMONE 0.031 mIU/mL (0.358-3.740)
[2019-05-24 11:44] LABS: *BILIRUBIN,URIN 2+ (NEGATIVE); *BLOOD, URINE TRACE (NEGATIVE); *COLOR,URINE YELLOW (YELLOW); *KETONES,URINE TRACE (NEGATIVE); LEUKOCYTE ESTERASE ,URINE TRACE (NEGATIVE); NITRITE, URINE POSITIVE (NEGATIVE); UGLUCOSE NEGATIVE (NEGATIVE)
[2019-05-24 11:45] LABS: *CLARITY,URINE SLIGHTLY CLOUDY (CLEAR)
[2019-05-24 11:53] LABS: *AMPHETAMINE, URINE NEGATIVE (NEGATIVE); *BARBITURATE, URINE NEGATIVE (NEGATIVE); *CANNABINOID, URINE NEGATIVE (NEGATIVE); *COCCAINE, URINE NEGATIVE (NEGATIVE); *OPIATE, URINE NEGATIVE (NEGATIVE); *PHENCYCLIDINE SCREEN,URINE NEGATIVE (NEGATIVE)
[2019-05-24 11:54] LABS: BACTERIA,URINE MANY /HPF (NONE SEEN); RBC,URINE 0-3 /HPF (0-3); SQUAMOUS EPITHELIAL CELL,UR FEW /HPF (NONE SEEN)
--- NOTE | 2019-05-24 12:01 | NUR ---
ER SPOKE W/ MD FROM [facility]. PLAN TO TRANSFER PT TO [facility].
[2019-05-24] MEDS ORDERED: CEFTRIAXONE 1 G in IV DEXTROSE 5% 50 ML IV ONE (12:15)
[2019-05-24] MEDS ORDERED: CEFTRIAXONE 1 G VIAL ONE (12:17)
--- NOTE | 2019-05-24 12:59 | NUR ---
SPOKE W/ FROM [facility]. PLAN TO TRANSFER TO A SNF. AWAITING CALLBACK W/ INFO FOR TRANSPORTATION.
--- NOTE | 2019-05-24 13:54 | NUR ---
RECEIVED CALL FROM [facility] ER[facility]. PT WILL BE TRANSFERRED TO [facility] BED [address]. ADM[address] DR. BLEVINS. CALL [phone]
--- NOTE | 2019-05-24 14:41 | NUR ---
TRANSFER REPORT GIVEN TO DENZEL HE AT [facility].
--- NOTE | 2019-05-24 14:52 | NUR ---
REPORT WAS GIVEN AT [phone]
--- NOTE | 2019-05-24 15:53 | NUR ---
REPORT GIVEN TO [facility] [address], [facility].
--- NOTE | 2019-05-24 16:04 | NUR ---
Patient Tranfers to outside Facility Physician: DR. BLEVINS Location: [facility]
== END 2019-05-24 16:05 | disposition short-term general hospital (02) ==
LOC: ER 10:37
DX: S00.211A Abrasion of right eyelid and periocular area, initial encounter (principal); R41.82 Altered mental status, unspecified; T42.4X1A Poisoning by benzodiazepines, accidental (unintentional), initial encounter; F41.9 Anxiety disorder, unspecified; F32.9 Major depressive disorder, single episode, unspecified; F29 Unspecified psychosis not due to a substance or known physiological condition; I12.9 Hypertensive chronic kidney disease with stage 1 through stage 4 chronic kidney disease, or unspecified chronic kidney disease; N18.9 Chronic kidney disease, unspecified; Z79.1 Long term (current) use of non-steroidal anti-inflammatories (NSAID); Z79.899 Other long term (current) drug therapy; W01.0XXA Fall on same level from slipping, tripping and stumbling without subsequent striking against object, initial encounter; Y93.89 Activity, other specified; Y92.89 Other specified places as the place of occurrence of the external cause; Y99.8 Other external cause status
CPT/HCPCS: 36415; 70450; 71045; 72125; 80076; 80307; 81000; 81001; 82140; 83605; 83735; 84443; 84484; 85025; 85730; 87040 ×2; 87077; 87086; 87186; 93005; 96361; 96365; 99285; G0480 ×2; G0481; J0696; J7060; 70030-TC; A4663; C1758; J7040